=== PATIENT | male | born 1955 | race Caucasian/White ===

== ENCOUNTER 2019-12-04 22:41 | IRF | payer MEDICARE, SELFPAY ==
--- NOTE | ~2019-12-04 | US_ITS ---
EXAMINATION: US venous doppler [facility] DATE: 12/10/2019 15:42 INDICATION: Bilateral lower limb swelling TECHNIQUE: Chu scale images without and with compression and Doppler images of the bilateral lower e xtremity veins were obtained. COMPARISON: None FINDINGS: The right common femoral vein, profunda femoral vein, femoral vein, popliteal vein, peroneal trunk, p osterior tibial veins, and greater saphenous vein are patent. The left common femoral vein, profunda femoral vein, femoral vein, popliteal vein, peroneal trunk, po sterior tibial veins, and greater saphenous vein are patent. IMPRESSION: 1. Patent bilateral lower extremity veins. No evidence of deep venous thrombosis. Reviewed, dictated and finalized at location A. IMPRESSION: 1. Patent bilateral lower extremity veins. No evidence of deep venous thrombosi s.
[2019-12-04 17:40] VITALS: BP 140/74; PULSE 76; RESP 17; TEMP 36.6; O2SAT 98; BMI 46.0
--- NOTE | 2019-12-04 19:04 | PC.NURSE ---
This patient, Kalyan Zarate, was admitted to [facility] Room 218-01. Patient/family oriented to hospital policies and general routines including ID bracelet, bed and alarms, visiting hours, pain management, procedures, bathroom and other care routines, personal items, smoking policy, room service/diet, and visiting hours. Valuables list has been completed. Information on how to activate the Rapid Response Team has been discussed. Patient/Family are encouraged to report perceived risks to care and to ask questions if they do not understand what they are told or what they should do.
[2019-12-04 19:16] LABS: Glucose Point of Care 308 (65-105)
[2019-12-04] MEDS: CALCIUM CARBONATE (OSCAL) 500 MG TABLET PO (19:47)
[2019-12-04] MEDS: ENOXAPARIN 40 MG/0.4 ML SYRINGE SUB-Q (19:47)
[2019-12-04] MEDS: metFORMIN HCL 500 MG TABLET 1000 MG PO (19:47)
[2019-12-04 22:00] VITALS: BP 141/65; PULSE 96; RESP 16; TEMP 36.3; O2SAT 96
[2019-12-05 05:41] LABS: Basophils Absolute Auto 0.1 K/mm3 (0.0-0.1); Basophils Percent Auto 0.4 % (0.2-1.2); Eosinophils Absolute Auto 0.3 K/mm3 (0-0.3); Eosinophils Percent Auto 2.2 % (0-4.4); Hematocrit 35.3 % (42.0-52.0); Hemoglobin 11.4 g/dL (14.0-18.0); Immature Granulocyte Percent A 0.8 % (0-0.5); Lymphocytes Absolute Auto 1.89 K/mm3 (0.9-3.2); Lymphocytes Percent Auto 15.7 % (18.3-44.2); Mean Corpuscular HGB Conc 32.3 g/dl (32-36); Mean Corpuscular Hemoglobin 29.6 pg (26-34); Mean Corpuscular Volume 91.7 fl (80-100); Mean Platelet Volume 9.6 fl (7.4-10.4); Monocytes Absolute Auto 0.8 K/mm3 (0.1-0.6); Monocytes Percent Auto 6.5 % (2.6-8.5); Neutrophils Percent Auto 74.4 % (45.5-73.1); Platelet Count Result 279 k/mm3 (150-375); Red Blood Count 3.85 M/mm3 (4.6-6.20); Red Cell Distribution Width 12.8 % (11.5-14.5)
[2019-12-05 05:48] LABS: Hemoglobin A1C 7.6 % (<5.7)
[2019-12-05 05:52] LABS: Blood Urea Nitrogen 19 mg/dL (9-20); Calcium 9.2 mg/dL (8.4-10.2); Carbon Dioxide 31 mmol/L (22-30); Chloride 98 mmol/L (98-107); Estimated CRCL calculation 96 ml/min; Estimated Glomerular Filt Rate > 60; Glucose 277 mg/dL (75-110); Potassium 4.3 mmol/L (3.4-5.0); Sodium 134 mmol/L (137-145)
[2019-12-05 06:00] VITALS: BP 121/66; PULSE 95; RESP 18; TEMP 36.2; O2SAT 94
[2019-12-05] MEDS: ENOXAPARIN 40 MG/0.4 ML SYRINGE SUB-Q ×2 (06:06→17:58)
[2019-12-05 06:56] LABS: Glucose Point of Care 264 (65-105)
[2019-12-05] MEDS: metFORMIN HCL 500 MG TABLET 1000 MG PO ×2 (08:32→17:56)
[2019-12-05] MEDS: DOCUSATE SODIUM 100 MG CAPSULE PO (08:33)
[2019-12-05] MEDS: ATORVASTATIN 40 MG TABLET PO (08:33)
[2019-12-05] MEDS: CALCIUM CARBONATE (OSCAL) 500 MG TABLET PO ×2 (08:33→17:57)
[2019-12-05] MEDS: FLUTICASONE PROPIONATE 0.05% NA SPR 16 GM BTL (*BKC) 2 SPRAY NASAL (08:33)
[2019-12-05] MEDS: lisinopriL 20 MG TABLET 40 MG PO (08:34)
[2019-12-05] MEDS: TAMSULOSIN HCL 0.4 MG CAPSULE PO (08:34)
[2019-12-05] MEDS: INSULIN ASPART (*BKC) 100 UNITS/ML SUB-Q ×3 (08:51→17:55)
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
--- NOTE | 2019-12-05 11:00 | PCOTNOTE ---
Initiated occupational therapy evaluation, but unable to complete entirely as patient in to much pain. Therapist assisted patient back to bed, reviewed prior level of function information, and assessed upper extremity ROM and strength. RN administered medication during session. Will complete assessment this afternoon.
[2019-12-05 12:25] LABS: Glucose Point of Care 340 (65-105)
[2019-12-05 14:00] VITALS: BP 102/54; PULSE 122; RESP 20; TEMP 36.8; O2SAT 98
[2019-12-05 17:35] LABS: Glucose Point of Care 327 (65-105)
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
[2019-12-05 21:16] LABS: Glucose Point of Care 348 (65-105)
[2019-12-05 22:00] VITALS: BP 147/70; PULSE 110; RESP 18; TEMP 37.6; O2SAT 97
[2019-12-06 05:24] LABS: Hematocrit 31.1 % (42.0-52.0); Hemoglobin 10.3 g/dL (14.0-18.0); Mean Corpuscular HGB Conc 33.1 g/dl (32-36); Mean Corpuscular Hemoglobin 29.3 pg (26-34); Mean Corpuscular Volume 88.4 fl (80-100); Mean Platelet Volume 9.3 fl (7.4-10.4); Platelet Count Result 261 k/mm3 (150-375); Red Blood Count 3.52 M/mm3 (4.6-6.20); Red Cell Distribution Width 12.4 % (11.5-14.5)
[2019-12-06] MEDS: ENOXAPARIN 40 MG/0.4 ML SYRINGE SUB-Q ×2 (05:27→17:38)
[2019-12-06 05:49] LABS: Alanine Aminotransferase 17 U/L (4-50); Albumin Level 3.2 g/dL (3.5-5.1); Alkaline Phosphatase 80 U/L (38-126); Aspartate Amino Transferase 22 U/L (17-59); Bilirubin,Total 0.8 mg/dL (0.2-1.3); Blood Urea Nitrogen 21 mg/dL (9-20); Calcium 8.6 mg/dL (8.4-10.2); Carbon Dioxide 30 mmol/L (22-30); Chloride 98 mmol/L (98-107); Estimated CRCL calculation 87 ml/min; Estimated Glomerular Filt Rate > 60; Glucose 314 mg/dL (75-110); Potassium 4.7 mmol/L (3.4-5.0); Sodium 132 mmol/L (137-145)
[2019-12-06 06:00] VITALS: BP 144/64; PULSE 89; RESP 17; TEMP 36.9; O2SAT 97
[2019-12-06 06:55] LABS: Glucose Point of Care 322 (65-105)
[2019-12-06 08:00] VITALS: PULSE 89; RESP 17; O2SAT 97
[2019-12-06] MEDS: FLUTICASONE PROPIONATE 0.05% NA SPR 16 GM BTL (*BKC) 2 SPRAY NASAL (08:40)
[2019-12-06] MEDS: metFORMIN HCL 500 MG TABLET 1000 MG PO ×2 (08:41→17:37)
[2019-12-06] MEDS: TAMSULOSIN HCL 0.4 MG CAPSULE PO (08:41)
[2019-12-06] MEDS: ATORVASTATIN 40 MG TABLET PO (08:41)
[2019-12-06] MEDS: DOCUSATE SODIUM 100 MG CAPSULE PO (08:41)
[2019-12-06] MEDS: lisinopriL 20 MG TABLET 40 MG PO (08:41)
[2019-12-06] MEDS: CALCIUM CARBONATE (OSCAL) 500 MG TABLET PO ×2 (08:41→17:37)
[2019-12-06] MEDS: INSULIN ASPART (*BKC) 100 UNITS/ML SUB-Q ×2 (11:13→12:00)
[2019-12-06 12:14] LABS: Glucose Point of Care 352 (65-105)
[2019-12-06 12:17] VITALS: BMI 46.0
--- NOTE | 2019-12-06 12:42 | WPDNEURORHBP ---
Subjective Date/time seen: 12/06/19 12:42 Interval history: this 64-year-old diabetic overweight gentleman is here after having had surgery for the periprosthetic fracture of the right femur he is nonweightbearing incision is clean his diabetic status is not controlled and I have requested the diabetic nurse to look into it the hospitalist has also seen him we need to find out what his home medications were and then accordingly due the adjustments he denies any headache nausea vomiting chest pain shortness of breath fever chills sore throat is main issue is the pain during the physical therapy which is able to tolerate with some discomfort Review of Systems Review of Systems: All systems reviewed & are unremarkable except as noted in HPI and below Functional Status Ambulation Ability Ambulation Assistive Devices: Walker, Wheeled Transfers Ability Ability to Transfer In/Out of Chair: Moderate Assistance X 1 Exam Const: General: no acute distress and uncomfortable HENMT: General nose exam: Normal nares present Mouth: Yes moist mucous membranes Eyes: General: appearance normal, both eyes and all related structures Neck: Neck: supple and no JVD Resp: Effort & Inspection: normal respiratory effort Auscultation: clear to auscultation bilaterally Cardio: Rate: regular rate Rhythm: regular rhythm GI: GI Palp: Yes Soft to palpation Auscultation: normal bowel sounds Skin: General skin exam: normal color and no rashes or lesions noted Neuro: Other: patient is awake and alert well oriented time place and person has normal speech and language functions upper extremity strength is 5/5 lower extremity strength is limited because of the surgery nonweightbearing status and also peripheral neuropathy patient needs assistance all the activities of daily living Extrem: Other: the incision around the distal femur is clean no drainage is noted the immobilizer is in place patient needs assistance in all the activities of daily living Psych: Mental Status: mental status grossly normal Objective Data Vital Signs Vital Signs: Vital Signs - 24 hr 12/05/19 14:00 12/05/19 22:00 12/06/19 06:00 Temperature 36.8 C 37.6 C 36.9 C Pulse Rate 122 H 110 H 89 Respiratory Rate 20 18 17 Blood Pressure 102/54 L 147/70 H 144/64 H Pulse Oximetry 98 97 97 12/06/19 08:00 Temperature Pulse Rate 89 Respiratory Rate 17 Blood Pressure Pulse Oximetry 97 Intake/Output Intake/Output: Intake & Output 12/03/19 12/04/19 12/05/19 12/06/19 23:59 23:59 23:59 23:59 Intake Total 480 1040 500 Balance 480 1040 500 Meds/Results Medications: Active Medications Generic Name Dose Route Start Last Admin Trade Name Freq PRN Reason Stop Dose Admin Hydrocodone Bitart/Acetaminophen 1 tab 12/04/19 18:56 [place] 5-325 Mg PO Q4H PRN Pain Rated 4-6 Hydrocodone Bitart/Acetaminophen 2 tab 12/04/19 22:14 12/06/19 10:42 [place] 5-325 Mg PO 2 tab Q4H PRN Administration Pain Rated 7-10 Atorvastatin Calcium 40 mg 12/05/19 09:00 12/06/19 08:41 Lipitor PO 40 mg DAILY CARLA Administration Calcium Carbonate 500 mg 12/04/19 17:00 12/06/19 08:41 Oscal 500 Mg PO 500 mg BID CARLA Administration Dextrose 12.5 gm 12/04/19 19:08 Dextrose 50% Syringe IV PUSH PRN PRN Hypoglycemia Protocol Docusate Sodium 100 mg 12/05/19 09:00 12/06/19 08:41 Colace Capsule PO 100 mg DAILY CARLA Administration Enoxaparin Sodium 40 mg 12/06/19 18:00 Lovenox SUB-Q Q12H CARLA Ergocalciferol 50,000 unit 12/16/19 09:00 Drisdol PO [id number]@0900 CARLA Fluticasone Propionate 2 spray 12/05/19 09:00 12/06/19 08:40 Flonase 0.05% Nasal [place] NASAL 2 spray DAILY CARLA Administration Glucagon 1 mg 12/04/19 19:08 Glucagon For Inj IM PRN PRN Hypoglycemia Protocol Glucose 15 gm 12/04/19 19:08 Glutose 15 PO PRN PRN Hypoglycemia Protocol Dextrose 1,
--- NOTE | 2019-12-06 12:43 | RPD ---
INDIVIDUALIZED PLAN OF CARE FOR Kalyan Zarate Brief Synthesis of Pre-Admission Screen, Post-Admission Evaluation and Therapy Evaluations: The patient presents to rehab with Right periprosthetic distal femur fracture. Comorbidities include status post open reduction internal function, uncontrolled type 2 diabetes mellitus, hypertension, dyslipidemia, acute postoperative pain, acute blood loss anemia. The patient requires physician services for medical oversight, management of postop complications in setting of present comorbidities, and pain management. The patient requires nursing services for DVT prophylactics, infection protection, medication management and education, pressure relief, and wound care. Deficits include:ADLs, Balance, Endurance, Family Training/Education, Mobility, Pain Management, ROM, Safety, Strength, Transfers Shift Coordinator/Case Management for: Discharge Planning and Patient/Family Counseling Physical Therapy: 5 days per week for 90 minutes. Treatments may include: Therapeutic Exercise, Gait Training, Neuromuscular Re-education, Transfer Training, Community Reintegration, Bed Mobility, Patient/Family Education, Wheelchair Mobility Group Therapy/Concurrent Therapy Rationales: -Improve attention span during functional activities in a distracted environment. -Enhance problem solving and/or adequate judgment skills during functional activities in a distracted environment. -Promote increased safety awareness in a distracted environment to reduce fall risk with functional tasks, transfers, and ambulation to allow a more safe, self-sufficient return to the home environment. -Improve dynamic balance skills to promote safety and independence with functional activities in a distracted environment for maximum gain. Occupational Therapy: 5 days per week for 90 minutes. Treatments may include: Therapeutic Exercise, Therapeutic Activity, Cognitive Training, Self-Care Transfer Training, Community Reintegration, Home Management, Patient/Family Education, Wheelchair Mobility Training, Energy Conservation Training Group Therapy/Concurrent Therapy Rationales: -Allow therapist to observe and teach generalization and carry-over of skills learned in individual therapy. -Enhance problem solving and sequencing skills during therapeutic activities in a distracted environment. -Promote increased safety awareness in a realistic setting to reduce fall risk with functional tasks due to visual and verbal distractions. -Increase functional level with ADLs, ADL transfers and use of adaptive equipment through therapeutic activities with others while promoting safety to allow a more safe, self-sufficient return home. Medical Prognosis: Good Anticipated Length of Stay: 12 days Rehab Goals: Eating Goal: 06-Independent Oral Hygiene Goal: 06-Independent Toileting Hygiene Goal: 04-Supervision or Touching Assistance Shower/Bathe Self Goal: 03-Partial/Moderate Assistance Upper Body Dressing Goal: 05-Setup or Clean Up Assistance Lower Body Dressing Goal: 03-Partial/Moderate Assistance Putting On/Taking Off Footwear Goal: 04-Supervision or Touching Assistance Rolling Left and Right Goal: 06-Independent Sit to Lying Goal: 06-Independent Lying to Sitting on Side of Bed Goal: 06-Independent Sit to Stand Goal: 04-Supervision or Touching Assistance Chair/Jcv-ez-Rzyno Transfer Goal: 04-Supervision or Touching Assistance Toilet Transfer Goal: 04-Supervision or Touching Assistance Car Transfer Goal: 06-Independent Walk 10' Goal: 04-Supervision or Touching Assistance Walk 50' with Two Turns Goal: 02-Substantial/Maximal Assistance Walk 150' Goal: 09-Not Applicable Walk 10' on Uneven Surface Goal: 04-Supervision or Touching Assistance 1 Step (Curb) Goal: 01-Dependent 4 Steps Goal: 01-Dependent 12 Steps Goal Score: 09-Not Applicable Picking Up Object Goal: 06-Independent Wheel 50' with Two Turns Score: 06-Independent Wheel 150' Goal: 06-Independent Anticipated discharge yassine
[2019-12-06 14:00] VITALS: BP 141/69; PULSE 97; RESP 18; TEMP 36.1; O2SAT 94
[2019-12-06 15:00] VITALS: BMI 46.0
--- NOTE | 2019-12-06 16:34 | PM.IMPN ---
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 Status post ORIF 12/01/2019 at [facility]. Continue Lovenox 40 milligram subq q12H for DVT prophylaxis. Continue PT/OT Continue fall precautions Continue [place] for pain (2) Type 2 diabetes mellitus with peripheral neuropathy: Code(s): E11.42 - Type 2 diabetes mellitus with diabetic polyneuropathy Status: Inactive Assessment and Plan: Patient reports he has been followed by an paper folder. He tells me his home regimen consist of sliding scale NovoLog, metformin, and weekly Trulicity. However, his home medication only lists metformin. Hemoglobin A1c was 7.6% on 11/1419. Blood sugars evaluated and are elevated in the 300 range. Will need to clarify home medications with pharmacy. Initiate sliding scale insulin, Accu-Cheks, and hypoglycemic protocol. Continue metformin. Begin 20 units Lantus qHS Patient was evaluated by inclusion paraeducator and recommendations are appreciated. (3) Hypertension: Code(s): I10 - Essential (primary) hypertension Status: Acute Assessment and Plan: Blood pressures were reviewed and they are reasonably well controlled. Blood pressure evaluated today and stable at 140 4/64. Continue lisinopril and monitor blood pressure daily. (4) Hyponatremia: Code(s): E87.1 - Hypo-osmolality and hyponatremia Status: Acute Assessment and Plan: At presentation sodium was 134. Today, sodium is 132. Order random urine sodium and creatinine. Check TSH and cortisol. Monitor sodium closely. (5) Dyslipidemia: Code(s): E78.5 - Hyperlipidemia, unspecified Status: Acute Assessment and Plan: Patient has history of hyperlipidemia Continue statin. Order lipid panel (6) Benign prostatic hyperplasia: Code(s): N40.0 - Benign prostatic hyperplasia without lower urinary tract symptoms Status: Acute Assessment and Plan: No acute issues. He denies any irritative voiding symptoms. Continue tamsulosin. Subjective Date/time seen: 12/06/19 16:34 Interval history: Date of service: 12/06/2019 Mr. Zarate repeat ports he is feeling well today. He has been working well with therapy. He reports his left leg pain is being well controlled. His appetite is good. His last bowel movement was 2 days ago. He denies abdominal pain, nausea, or vomiting. He is urinating without difficulty. He denies cough, shortness of breath, or chest pain. He denies any bleeding or bruising. He denies numbness or tingling in his legs or arms. He had just been evaluated by the life educator. He has no additional concerns. Review of Systems Review of Systems: Narrative: A 12 point review of systems was reviewed with pertinent positives and negatives as per HPI. Exam Narrative: Exam Narrative: Mr. Zarate is examined alone today. He is a well-nourished 64-year-old male who is lying supine in bed. He is comfortable and is in no acute respiratory distress. HR 89, BP 144/64, RR 17, T 98.4?, 97% on room air Neuro: awake, alert and oriented x4, speech clear, no focal neuro deficits noted HEENMT: normocephalic, atraumatic, EOMI, sclerae anicteric, moist oral mucosa Neck: supple, no lymphadenopathy, large neck circumference Respiratory: clear to auscultation bilaterally, normal respiratory effort without accessory muscle use Cardio: regular rate, regular rhythm, normal S1 and S2 Abdomen: normal to inspection, obese, normoactive bowel sounds, soft, nontender to palpation, no rigidity or guarding Extremities:
[2019-12-06 17:16] LABS: Glucose Point of Care 243 (65-105)
[2019-12-06 20:42] VITALS: BP 126/65; PULSE 80; RESP 18; TEMP 37.1; O2SAT 99
[2019-12-06 21:08] LABS: Creatinine Urine 86.1 mg/dL
[2019-12-06 21:19] LABS: Sodium Urine Random 69 meq/L
[2019-12-06] MEDS: INSULIN GLARGINE (*BKC) 100 UNITS/ML 60 UNITS SUB-Q (21:29)
[2019-12-06 22:14] LABS: Glucose Point of Care 329 (65-105)
[2019-12-06 23:35] LABS: Cortisol Random 4.48 ug/dL
[2019-12-06 23:58] LABS: Cholesterol 114 mg/dL (0-200); HDL Direct 24 mg/dL; Triglycerides 129 mg/dL (<150)
[2019-12-07 00:08] LABS: LDL Cholesterol Direct 60 mg/dL
[2019-12-07 02:26] LABS: Free T4 Free Thyroxine Reflex 1.23 ng/dL (0.78-2.19)
[2019-12-07 03:31] LABS: Total Triiodothyronine (T3) 0.96 NG/ML (0.97-1.69)
[2019-12-07 05:10] LABS: Blood Urea Nitrogen 20 mg/dL (9-20); Calcium 8.6 mg/dL (8.4-10.2); Carbon Dioxide 30 mmol/L (22-30); Chloride 97 mmol/L (98-107); Estimated CRCL calculation 96 ml/min; Estimated Glomerular Filt Rate > 60; Glucose 312 mg/dL (75-110); Potassium 4.3 mmol/L (3.4-5.0); Sodium 131 mmol/L (137-145)
[2019-12-07] MEDS: ENOXAPARIN 40 MG/0.4 ML SYRINGE SUB-Q ×2 (05:14→17:21)
[2019-12-07 05:20] VITALS: BP 123/62; PULSE 87; RESP 18; TEMP 36.9; O2SAT 97
[2019-12-07 06:58] LABS: Glucose Point of Care 292 (65-105)
[2019-12-07] MEDS: INSULIN ASPART (*BKC) 100 UNITS/ML SUB-Q (08:31)
[2019-12-07] MEDS: INSULIN ASPART (*BKC) 100 UNITS/ML 30 UNITS SUB-Q ×2 (08:32→12:19)
[2019-12-07] MEDS: INSULIN GLARGINE (*BKC) 100 UNITS/ML 50 UNITS SUB-Q (08:34)
[2019-12-07] MEDS: metFORMIN HCL 500 MG TABLET 1000 MG PO ×2 (08:35→17:22)
[2019-12-07] MEDS: lisinopriL 20 MG TABLET 40 MG PO (08:36)
[2019-12-07] MEDS: TAMSULOSIN HCL 0.4 MG CAPSULE PO (08:36)
[2019-12-07] MEDS: FLUTICASONE PROPIONATE 0.05% NA SPR 16 GM BTL (*BKC) 2 SPRAY NASAL (08:36)
[2019-12-07] MEDS: CALCIUM CARBONATE (OSCAL) 500 MG TABLET PO ×2 (08:37→17:21)
[2019-12-07] MEDS: ATORVASTATIN 40 MG TABLET PO (08:37)
[2019-12-07] MEDS: DOCUSATE SODIUM 100 MG CAPSULE PO (08:38)
[2019-12-07 11:30] VITALS: PULSE 99; RESP 16; O2SAT 94
[2019-12-07 12:04] LABS: Glucose Point of Care 182 (65-105)
[2019-12-07 13:59] LABS: Sodium 132 mmol/L (137-145)
[2019-12-07 14:00] VITALS: BP 115/57; PULSE 99; RESP 16; TEMP 36; O2SAT 94
--- NOTE | 2019-12-07 14:10 | PM.IMPN ---
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 Status post ORIF 12/01/2019 at [facility]. Continue Lovenox 40 milligram subq q12H for DVT prophylaxis. Continue PT/OT Continue fall precautions Continue [place] for pain (2) Type 2 diabetes mellitus with peripheral neuropathy: Code(s): E11.42 - Type 2 diabetes mellitus with diabetic polyneuropathy Status: Inactive Assessment and Plan: Patient reports he follows with an health concierge. He tells me his home regimen consist of sliding scale NovoLog, metformin, and weekly Trulicity. However, his home medication only lists metformin. Hemoglobin A1c was 7.6% on 12/05/19. Blood sugars evaluated and are elevated in the 300 range. Patient evaluated by CDE on 12/06/19. CDE spoke to patients health concierge for recommendations which have been implemented. Initiate high-dose sliding scale insulin, Accu-Cheks ACHS, and hypoglycemic protocol. Continue metformin. Lantus 50 units qAM and and 60 units HS Novolog 30 units with meals Continue diabetic carb consistent diet Continue to monitor glycemic control . (3) Hypertension: Code(s): I10 - Essential (primary) hypertension Status: Acute Assessment and Plan: Blood pressures were reviewed and they are reasonably well controlled. Blood pressure evaluated today and stable at 123/62. Continue lisinopril and monitor blood pressure daily. (4) Hyponatremia: Code(s): E87.1 - Hypo-osmolality and hyponatremia Status: Acute Assessment and Plan: At presentation sodium was 134. Today, sodium is 131. Corrected for hyperglycemia, sodium is 133. FeNa is 0.6%, suggesting pre-renal etiology. TSH and random cortisol are wnl. I suspect that this may be related to patients hyperglycemia. Continue to monitor sodium closely. Continue glycemic control regimen (5) Dyslipidemia: Code(s): E78.5 - Hyperlipidemia, unspecified Status: Acute Assessment and Plan: Patient has history of hyperlipidemia Continue statin. Order lipid panel (6) Benign prostatic hyperplasia: Code(s): N40.0 - Benign prostatic hyperplasia without lower urinary tract symptoms Status: Acute Assessment and Plan: No acute issues. He denies any irritative voiding symptoms. Continue tamsulosin. Subjective Date/time seen: 12/07/19 14:10 Interval history: Date of service: 12/07/2019 Reports he is feeling well today. He is sitting up in a chair at the bedside. He has been working with therapy and reports he is doing well. He has no acute concerns today. His appetite is good and he tells me he is drinking plenty of water. His last bowel movement was 2 days ago. He denies any nausea, vomiting, abdominal pain, or cramping. He is urinating without difficulty. He denies dysuria, hematuria or other irritative voiding symptoms. He denies cough, congestion, shortness of breath, or chest pain. Review of Systems Review of Systems: Narrative: A 12 point review of systems was reviewed with pertinent positives and negatives as per HPI. Exam Narrative: Exam Narrative: Mr. Zarate is examined alone today. He is a well-nourished 64-year-old male who is lying supine in bed. He is comfortable and is in no acute respiratory distress. HR 87, BP 123/62, RR 18, T 98.5?, 97% room air Neuro: awake, alert and oriented x4, speech clear, no focal neuro deficits noted HEENMT: normocephalic, atraumatic, EOMI, sclerae anicteric, moist oral mucosa Neck: supple, no lymphadenopathy, large neck circumference Respiratory: clear
--- NOTE | 2019-12-07 14:35 | WPDNEURORHBP ---
Subjective Date/time seen: 12/07/19 14:35 Interval history: this 64-year-old the significantly obese diabetic male is here after having had surgery for the right distal femur fracture. His diabetic status is better some of the medications have been changed and he is feeling much better than yesterday her his pain control is better overall no chest pain no shortness of breath no fever no chills no sore throat Review of Systems Review of Systems: All systems reviewed & are unremarkable except as noted in HPI and below Functional Status Ambulation Ability Ambulation Assistive Devices: Walker, Standard Transfers Ability Ability to Transfer In/Out of Chair: Moderate Assistance X 1 Exam Const: General: comfortable and no acute distress HENMT: General nose exam: Normal nares present Mouth: Yes moist mucous membranes Eyes: General: appearance normal, both eyes and all related structures Neck: Neck: supple and no JVD Resp: Effort & Inspection: normal respiratory effort Auscultation: clear to auscultation bilaterally Cardio: Rate: regular rate Rhythm: regular rhythm GI: GI Palp: Yes Soft to palpation Auscultation: normal bowel sounds Skin: General skin exam: normal color and no rashes or lesions noted Neuro: Other: patient is awake and alert well oriented time place and person speech and language functions are normal he has decreased strength lower extremities more so than the upper extremities related primarily due to diabetic peripheral neuropathy with depressed reflexes and of course limitation of the right lower extremity due to the surgeon Extrem: Other: the right lower extremity is in the immobilizer and the incision is clean and healthy Psych: Mental Status: mental status grossly normal Objective Data Vital Signs Vital Signs: Vital Signs - 24 hr 12/06/19 20:42 12/07/19 05:20 Temperature 37.1 C 36.9 C Pulse Rate 80 87 Respiratory Rate 18 18 Blood Pressure 126/65 123/62 Pulse Oximetry 99 97 Intake/Output Intake/Output: Intake & Output 12/04/19 12/05/19 12/06/19 12/07/19 23:59 23:59 23:59 23:59 Intake Total 480 1040 980 480 Output Total 800 Balance 480 1040 180 480 Meds/Results Medications: Active Medications Generic Name Dose Route Start Last Admin Trade Name Freq PRN Reason Stop Dose Admin Hydrocodone Bitart/Acetaminophen 1 tab 12/06/19 19:00 12/07/19 12:18 [place] 10-325 Mg PO 1 tab Q4H CARLA Administration Atorvastatin Calcium 40 mg 12/05/19 09:00 12/07/19 08:37 Lipitor PO 40 mg DAILY CARLA Administration Calcium Carbonate 500 mg 12/04/19 17:00 12/07/19 08:37 Oscal 500 Mg PO 500 mg BID CARLA Administration Dextrose 12.5 gm 12/04/19 19:08 Dextrose 50% Syringe IV PUSH PRN PRN Hypoglycemia Protocol Docusate Sodium 100 mg 12/05/19 09:00 12/07/19 08:38 Colace Capsule PO 100 mg DAILY CARLA Administration Enoxaparin Sodium 40 mg 12/06/19 18:00 12/07/19 05:14 Lovenox SUB-Q 40 mg Q12H CARLA Administration Ergocalciferol 50,000 unit 12/16/19 09:00 Drisdol PO [id number] [facility] Fluticasone Propionate 2 spray 12/05/19 09:00 12/07/19 08:36 Flonase 0.05% Nasal [place] NASAL 2 spray DAILY CARLA Administration Glucagon 1 mg 12/04/19 19:08 Glucagon For Inj IM PRN PRN Hypoglycemia Protocol Glucose 15 gm 12/04/19 19:08 Glutose 15 PO PRN PRN Hypoglycemia Protocol Dextrose 1,000 mls @ 100 mls/hr 12/04/19 19:08 Dextrose 5% 1,000 Ml IVPB PRN PRN Hypoglycemia Protocol Insulin Aspart 30 units 12/07/19 08:00 12/07/19 12:19 Novolog SUB-Q 30 units TIDWM CARLA Administration Insulin Aspart 4 - 8 units 12/07/19 08:00 12/07/19 12:21 Novolog SUB-Q Not Given TIDWM [facility] Protocol Insulin Glargine 60 units 12/06/19 21:00 12/06/19 21:29 Lantus SUB-Q 60 units HS CARLA Administration Insulin Glargine 50 units 12/07/19 08:00 0
[2019-12-07 17:10] LABS: Glucose Point of Care 72 (65-105)
[2019-12-07 20:20] VITALS: BP 107/55; PULSE 90; RESP 16; TEMP 37.1; O2SAT 97
[2019-12-07 21:25] LABS: Glucose Point of Care 136 (65-105)
[2019-12-08 04:59] LABS: Blood Urea Nitrogen 22 mg/dL (9-20); Calcium 8.5 mg/dL (8.4-10.2); Carbon Dioxide 29 mmol/L (22-30); Chloride 98 mmol/L (98-107); Estimated CRCL calculation 96 ml/min; Estimated Glomerular Filt Rate > 60; Glucose 194 mg/dL (75-110); Potassium 4.6 mmol/L (3.4-5.0); Sodium 132 mmol/L (137-145)
[2019-12-08 06:10] VITALS: BP 133/59; PULSE 82; RESP 18; TEMP 37.4; O2SAT 95
[2019-12-08] MEDS: ENOXAPARIN 40 MG/0.4 ML SYRINGE SUB-Q ×2 (06:36→18:42)
[2019-12-08 07:02] LABS: Glucose Point of Care 216 (65-105)
[2019-12-08] MEDS: metFORMIN HCL 500 MG TABLET 1000 MG PO ×2 (07:29→18:41)
[2019-12-08] MEDS: INSULIN GLARGINE (*BKC) 100 UNITS/ML 50 UNITS SUB-Q (07:30)
[2019-12-08] MEDS: INSULIN ASPART (*BKC) 100 UNITS/ML 30 UNITS SUB-Q ×3 (07:32→18:43)
[2019-12-08] MEDS: INSULIN ASPART (*BKC) 100 UNITS/ML SUB-Q (07:32)
[2019-12-08 08:00] VITALS: PULSE 82; RESP 18; O2SAT 95
[2019-12-08] MEDS: FLUTICASONE PROPIONATE 0.05% NA SPR 16 GM BTL (*BKC) 2 SPRAY NASAL (08:46)
[2019-12-08] MEDS: DOCUSATE SODIUM 100 MG CAPSULE PO (08:47)
[2019-12-08] MEDS: lisinopriL 20 MG TABLET 40 MG PO (08:47)
[2019-12-08] MEDS: TAMSULOSIN HCL 0.4 MG CAPSULE PO (08:47)
[2019-12-08] MEDS: CALCIUM CARBONATE (OSCAL) 500 MG TABLET PO ×2 (08:47→18:41)
[2019-12-08] MEDS: ATORVASTATIN 40 MG TABLET PO (08:47)
[2019-12-08 12:19] LABS: Glucose Point of Care 125 (65-105)
[2019-12-08 14:00] VITALS: BP 130/75; PULSE 101; RESP 20; TEMP 36.3; O2SAT 97
--- NOTE | 2019-12-08 15:07 | P.PNIM_ITS ---
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 Status post ORIF 12/01/2019 at [facility]. * Continue Lovenox 40 milligram subq q12H for DVT prophylaxis. * Continue PT/OT * Continue fall precautions * Continue [place] for pain (2) Type 2 diabetes mellitus with peripheral neuropathy: Code(s): E11.42 - Type 2 diabetes mellitus with diabetic polyneuropathy Status: Inactive Assessment and Plan: Patient reports he follows with an homeland security program specialist. He tells me his home regimen consist of sliding scale NovoLog, metformin, and weekly Trulicity. However, his home medication only lists metformin. Hemoglobin A1c was 7.6% on 12/05/19. Patient evaluated by CDE on 12/06/19. CDE spoke to patients homeland security program specialist for recommendations which have been implemented. Blood sugars have been improved today 125-216. * Continue high-dose sliding scale insulin, Accu-Cheks ACHS, and hypoglycemic protocol. * Continue metformin. * Lantus 50 units qAM and and 60 units HS * Novolog 30 units with meals * Continue diabetic carb consistent diet * Continue to monitor glycemic control . (3) Constipation due to opioid therapy: Code(s): K59.03 - Drug induced constipation; T40.2X5A - Adverse effect of other opioids, initial encounter Status: Acute Assessment and Plan: Patient has not had a BM in 4 days. He endorses abdominal discomfort and constipation. He has been taking [place] for pain related to fracture. He drank prune juice today. * Add senna * Continue colace * Begin miralax daily scheduled * If patient is unable to have a BM with aforementioned therapies, will attempt soap zan enema (4) Hypertension: Code(s): I10 - Essential (primary) hypertension Status: Acute Assessment and Plan: Blood pressures were reviewed and they are reasonably well controlled. Blood pressure evaluated today and stable at 133/59. * Continue lisinopril and monitor blood pressure daily. (5) Hyponatremia: Code(s): E87.1 - Hypo-osmolality and hyponatremia Status: Acute Assessment and Plan: At presentation sodium was 134. FeNa is 0.6%, suggesting pre-renal etiology. TSH and random cortisol are wnl. I suspect that this may be related to patients hyperglycemia. Additionally, he is on lisinopril and norco which may contribute. Sodium today is 132, correlating to 134 corrected for hyperglycemia. * Continue to monitor sodium closely. * Continue glycemic control regimen (6) Dyslipidemia: Code(s): E78.5 - Hyperlipidemia, unspecified Status: Acute Assessment and Plan: Patient has history of hyperlipidemia. Lipid panel performed and wnl besides low HDL. * Continue atorvastatin. (7) Benign prostatic hyperplasia: Code(s): N40.0 - Benign prostatic hyperplasia without lower urinary tract symptoms Status: Acute Assessment and Plan: No acute issues. He denies any irritative voiding symptoms. * Continue tamsulosin. Subjective Date/time seen: 12/08/19 15:07 Interval history: Date of service: 12/08/2019 Mr. Zarate is complaing of abdominal pain related to constipation today. He has no
--- NOTE | 2019-12-08 15:07 | PM.IMPN ---
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 Status post ORIF 12/01/2019 at [facility]. Continue Lovenox 40 milligram subq q12H for DVT prophylaxis. Continue PT/OT Continue fall precautions Continue [place] for pain (2) Type 2 diabetes mellitus with peripheral neuropathy: Code(s): E11.42 - Type 2 diabetes mellitus with diabetic polyneuropathy Status: Inactive Assessment and Plan: Patient reports he follows with an state historical society director. He tells me his home regimen consist of sliding scale NovoLog, metformin, and weekly Trulicity. However, his home medication only lists metformin. Hemoglobin A1c was 7.6% on 12/05/19. Patient evaluated by CDE on 12/06/19. CDE spoke to patients state historical society director for recommendations which have been implemented. Blood sugars have been improved today 125-216. Continue high-dose sliding scale insulin, Accu-Cheks ACHS, and hypoglycemic protocol. Continue metformin. Lantus 50 units qAM and and 60 units HS Novolog 30 units with meals Continue diabetic carb consistent diet Continue to monitor glycemic control . (3) Constipation due to opioid therapy: Code(s): K59.03 - Drug induced constipation; T40.2X5A - Adverse effect of other opioids, initial encounter Status: Acute Assessment and Plan: Patient has not had a BM in 4 days. He endorses abdominal discomfort and constipation. He has been taking [place] for pain related to fracture. He drank prune juice today. Add senna Continue colace Begin miralax daily scheduled If patient is unable to have a BM with aforementioned therapies, will attempt soap zan enema (4) Hypertension: Code(s): I10 - Essential (primary) hypertension Status: Acute Assessment and Plan: Blood pressures were reviewed and they are reasonably well controlled. Blood pressure evaluated today and stable at 133/59. Continue lisinopril and monitor blood pressure daily. (5) Hyponatremia: Code(s): E87.1 - Hypo-osmolality and hyponatremia Status: Acute Assessment and Plan: At presentation sodium was 134. FeNa is 0.6%, suggesting pre-renal etiology. TSH and random cortisol are wnl. I suspect that this may be related to patients hyperglycemia. Additionally, he is on lisinopril and norco which may contribute. Sodium today is 132, correlating to 134 corrected for hyperglycemia. Continue to monitor sodium closely. Continue glycemic control regimen (6) Dyslipidemia: Code(s): E78.5 - Hyperlipidemia, unspecified Status: Acute Assessment and Plan: Patient has history of hyperlipidemia. Lipid panel performed and wnl besides low HDL. Continue atorvastatin. (7) Benign prostatic hyperplasia: Code(s): N40.0 - Benign prostatic hyperplasia without lower urinary tract symptoms Status: Acute Assessment and Plan: No acute issues. He denies any irritative voiding symptoms. Continue tamsulosin. Subjective Date/time seen: 12/08/19 15:07 Interval history: Date of service: 12/08/2019 Mr. Zarate is complaing of abdominal pain related to constipation today. He has not had a bowel movement in several days and feels very uncomfortable. He was not able to eat much of his meal today due to his discomfort. He has been passing gas and belching. His left leg pain is not as significant today. He denies urinary symptoms. He denies SOB, chest pain, or cough. He denies fever or chills. He slept well last night. Review of Systems Review of Systems: Narrative: A 12 point review of systems was reviewed with
[2019-12-08 16:17] LABS: Blood Urea Nitrogen 22 mg/dL (9-20); Calcium 9.3 mg/dL (8.4-10.2); Carbon Dioxide 30 mmol/L (22-30); Chloride 99 mmol/L (98-107); Estimated CRCL calculation 96 ml/min; Estimated Glomerular Filt Rate > 60; Glucose 100 mg/dL (75-110); Potassium 4.7 mmol/L (3.4-5.0); Sodium 136 mmol/L (137-145)
--- NOTE | 2019-12-08 16:30 | WPDNEURORHBP ---
Subjective Date/time seen: 12/08/19 16:30 Interval history: this 64-year-old gentleman is here after having had surgery for the right distal femur fracture. He is a diabetic and seems like the diabetic control is better in the previous couple of days he denies any headache nausea vomiting chest pain shortness of breath fever chills sore throat Review of Systems Review of Systems: All systems reviewed & are unremarkable except as noted in HPI and below Functional Status Ambulation Ability Ambulation Assistive Devices: Walker, Standard Transfers Ability Ability to Transfer In/Out of Chair: Moderate Assistance X 1 Exam Const: General: comfortable and no acute distress HENMT: General nose exam: Normal nares present Mouth: Yes moist mucous membranes Eyes: General: appearance normal, both eyes and all related structures Neck: Neck: supple and no JVD Resp: Effort & Inspection: normal respiratory effort Auscultation: clear to auscultation bilaterally Cardio: Rate: regular rate Rhythm: regular rhythm GI: GI Palp: Yes Soft to palpation Auscultation: normal bowel sounds Skin: General skin exam: normal color and no rashes or lesions noted Neuro: Other: patient is awake and alert will oriented in time place and person has normal cranial examination the weakness is related to the not only the surgery but also evidence of the peripheral neuropathy which is all getting better Extrem: Other: the surgical incision around the distal femur is clean and the patient's right lower extremity is in immobilizer Psych: Mental Status: mental status grossly normal Objective Data Vital Signs Vital Signs: Vital Signs - 24 hr 12/07/19 20:20 12/08/19 06:10 12/08/19 08:00 Temperature 37.1 C 37.4 C Pulse Rate 90 82 82 Respiratory Rate 16 18 18 Blood Pressure 107/55 L 133/59 L Pulse Oximetry 97 95 95 12/08/19 14:00 Temperature 36.3 C L Pulse Rate 101 H Respiratory Rate 20 Blood Pressure 130/75 Pulse Oximetry 97 Intake/Output Intake/Output: Intake & Output 12/05/19 12/06/19 12/07/19 12/08/19 23:59 23:59 23:59 23:59 Intake Total 3056 433 0354 240 Output Total 800 Balance 9602 185 8563 240 Meds/Results Medications: Active Medications Generic Name Dose Route Start Last Admin Trade Name Freq PRN Reason Stop Dose Admin Hydrocodone Bitart/Acetaminophen 1 tab 12/06/19 19:00 12/08/19 12:07 [place] 10-325 Mg PO 1 tab Q4H CARLA Administration Atorvastatin Calcium 40 mg 12/05/19 09:00 12/08/19 08:47 Lipitor PO 40 mg DAILY CARLA Administration Calcium Carbonate 500 mg 12/04/19 17:00 12/08/19 08:47 Oscal 500 Mg PO 500 mg BID CARLA Administration Dextrose 12.5 gm 12/04/19 19:08 Dextrose 50% Syringe IV PUSH PRN PRN Hypoglycemia Protocol Docusate Sodium 100 mg 12/05/19 09:00 12/08/19 08:47 Colace Capsule PO 100 mg DAILY CARLA Administration Enoxaparin Sodium 40 mg 12/06/19 18:00 12/08/19 06:36 Lovenox SUB-Q 40 mg Q12H CARLA Administration Ergocalciferol 50,000 unit 12/16/19 09:00 Drisdol PO [id number] [facility] Fluticasone Propionate 2 spray 12/05/19 09:00 12/08/19 08:46 Flonase 0.05% Nasal [place] NASAL 2 spray DAILY [facility] Administration Glucagon 1 mg 12/04/19 19:08 Glucagon For Inj IM PRN PRN Hypoglycemia Protocol Glucose 15 gm 12/04/19 19:08 Glutose 15 PO PRN PRN Hypoglycemia Protocol Dextrose 1,000 mls @ 100 mls/hr 12/04/19 19:08 Dextrose 5% 1,000 Ml IVPB PRN PRN Hypoglycemia Protocol Insulin Aspart 30 units 12/07/19 08:00 12/08/19 12:07 Novolog SUB-Q 30 units TIDWM [facility] Administration Insulin Aspart 4 - 8 units 12/07/19 08:00 12/08/19 12:08 Novolog SUB-Q Not Given TIDWM [facility] Protocol Insulin Glargine 60 units 12/06/19 21:00 12/07/19 20:59 Lantus SUB-Q Not Given HS [facility] Insulin Glargine 50 units 12/07/19 08:00 12/08/19 07:
[2019-12-08 17:46] LABS: Glucose Point of Care 146 (65-105)
[2019-12-08 20:40] LABS: Glucose Point of Care 145 (65-105)
[2019-12-08] MEDS: SENNA/DOCUSATE SODIUM TABLET 1 TAB PO (20:52)
[2019-12-08] MEDS: INSULIN GLARGINE (*BKC) 100 UNITS/ML 60 UNITS SUB-Q (20:52)
[2019-12-08 22:00] VITALS: BP 119/58; PULSE 100; RESP 18; TEMP 36.4; O2SAT 97
[2019-12-09 06:00] VITALS: BP 105/55; PULSE 75; RESP 18; TEMP 36.1; O2SAT 96
[2019-12-09] MEDS: ENOXAPARIN 40 MG/0.4 ML SYRINGE SUB-Q ×2 (06:53→18:19)
[2019-12-09 07:00] LABS: Glucose Point of Care 82 (65-105)
[2019-12-09 08:00] VITALS: PULSE 75; RESP 18; O2SAT 96
[2019-12-09] MEDS: lisinopriL 20 MG TABLET 40 MG PO (08:36)
[2019-12-09] MEDS: TAMSULOSIN HCL 0.4 MG CAPSULE PO (08:36)
[2019-12-09] MEDS: ATORVASTATIN 40 MG TABLET PO (08:36)
[2019-12-09] MEDS: CALCIUM CARBONATE (OSCAL) 500 MG TABLET PO ×2 (08:36→18:19)
[2019-12-09] MEDS: metFORMIN HCL 500 MG TABLET 1000 MG PO ×2 (08:37→18:19)
[2019-12-09] MEDS: FLUTICASONE PROPIONATE 0.05% NA SPR 16 GM BTL (*BKC) 2 SPRAY NASAL (08:37)
[2019-12-09] MEDS: INSULIN GLARGINE (*BKC) 100 UNITS/ML 50 UNITS SUB-Q (08:38)
[2019-12-09] MEDS: LACTULOSE 20 GM/30 ML UDC 30 GM PO (08:45)
--- NOTE | 2019-12-09 10:03 | WPDNEURORHBP ---
Subjective Date/time seen: S/P right distal femur fracture with DM doing well12/09/19 10:03 Review of Systems Review of Systems: All systems reviewed & are unremarkable except as noted in HPI and below Functional Status Ambulation Ability Ambulation Assistive Devices: Walker, Standard Transfers Ability Ability to Transfer In/Out of Chair: Moderate Assistance X 1 Exam Const: General: cooperative, comfortable, no acute distress and well developed Nutritional Appearance: overweight Orientation/consciousness: patient oriented x3 Limitations: no limitations HENMT: Head: normal to inspection General nose exam: No nasal discharge present Neck: Neck: full ROM Resp: Effort & Inspection: normal respiratory effort and able to speak in complete sentences Auscultation: clear to auscultation bilaterally Cardio: Rate: regular rate Rhythm: regular rhythm GI: Auscultation: normal bowel sounds Skin: General skin exam: induration Rashes: no rashes Neuro: General: patient oriented x3 and moves all extremities Cranial nerves: Yes CN's II-XII intact bilaterally Cognition (Neuro): normal cognition Speech: normal speech Gait exam (Neuro): Unable to assess gait Motor exam (neuro): Pronator motor function not present Sensory Exam: Sensory deficit (Neuro) (distally) Extrem: Right lower extremity: lower leg (right lower extremity immobilized) Psych: Mental Status: mental status grossly normal Speech and movement: Normal speech and movement present Affect: normal affect Attitude: cooperative Thought content: Yes Normal thought content present Insight: Good insight present (Psych) Judgement: Good judgement present (Psych) Objective Data Vital Signs Vital Signs: Vital Signs - 24 hr 12/08/19 14:00 12/08/19 22:00 12/09/19 06:00 Temperature 36.3 C L 36.4 C L 36.1 C L Pulse Rate 101 H 100 75 Respiratory Rate 20 18 18 Blood Pressure 130/75 119/58 L 105/55 L Pulse Oximetry 97 97 96 Intake/Output Intake/Output: Intake & Output 12/06/19 12/07/19 12/08/19 12/09/19 23:59 23:59 23:59 23:59 Intake Total 980 1200 480 240 Output Total 800 Balance 180 1200 480 240 Meds/Results Medications: Active Medications Generic Name Dose Route Start Last Admin Trade Name Freq PRN Reason Stop Dose Admin Hydrocodone Bitart/Acetaminophen 1 tab 12/06/19 19:00 12/09/19 06:53 [place] 10-325 Mg PO 1 tab Q4H CARLA Administration Atorvastatin Calcium 40 mg 12/05/19 09:00 12/09/19 08:36 Lipitor PO 40 mg DAILY CARLA Administration Calcium Carbonate 500 mg 12/04/19 17:00 12/09/19 08:36 Oscal 500 Mg PO 500 mg BID CARLA Administration Dextrose 12.5 gm 12/04/19 19:08 Dextrose 50% Syringe IV PUSH PRN PRN Hypoglycemia Protocol Docusate Sodium 100 mg 12/05/19 09:00 12/08/19 08:47 Colace Capsule PO 100 mg DAILY CARLA Administration Enoxaparin Sodium 40 mg 12/06/19 18:00 12/09/19 06:53 Lovenox SUB-Q 40 mg Q12H CARLA Administration Ergocalciferol 50,000 unit 12/16/19 09:00 Drisdol PO [id number] [facility] Fluticasone Propionate 2 spray 12/05/19 09:00 12/09/19 08:37 Flonase 0.05% Nasal [place] NASAL 2 spray DAILY [facility] Administration Glucagon 1 mg 12/04/19 19:08 Glucagon For Inj IM PRN PRN Hypoglycemia Protocol Glucose 15 gm 12/04/19 19:08 Glutose 15 PO PRN PRN Hypoglycemia Protocol Dextrose 1,000 mls @ 100 mls/hr 12/04/19 19:08 Dextrose 5% 1,000 Ml IVPB PRN PRN Hypoglycemia Protocol Insulin Aspart 30 units 12/07/19 08:00 12/09/19 08:44 Novolog SUB-Q Not Given TIDWM [facility] Insulin Aspart 4 - 8 units 12/07/19 08:00 12/09/19 08:44 Novolog SUB-Q Not Given TIDWM [facility] Protocol Insulin Glargine 60 units 12/06/19 21:00 12/08/19 20:52 Lantus SUB-Q 60 units HS CARLA Administration Insulin Glargine 50 units 12/07/19 08:00 12/09/19 08:38 Lantus SUB-Q 50 units 08
--- NOTE | 2019-12-09 10:25 | PM.IMPN ---
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 Status post ORIF 12/01/2019 at [facility]. Continue Lovenox 40 milligram subq q12H for DVT prophylaxis. Continue PT/OT Continue fall precautions Continue [place] for pain (2) Type 2 diabetes mellitus with peripheral neuropathy: Code(s): E11.42 - Type 2 diabetes mellitus with diabetic polyneuropathy Status: Inactive Assessment and Plan: Patient reports he follows with an hot strip mill supervisor. He tells me his home regimen consist of sliding scale NovoLog, metformin, and weekly Trulicity. However, his home medication only lists metformin. Hemoglobin A1c was 7.6% on 12/05/19. Patient evaluated by CDE on 12/06/19. CDE spoke to patient's hot strip mill supervisor for recommendations which have been implemented. Blood sugars initially ranging 250-350 have shown improvement and ranged 82-146 the past 24h. Continue high-dose sliding scale insulin, Accu-Cheks ACHS, and hypoglycemic protocol. Continue metformin. Lantus 50 units qAM and and 60 units HS Novolog 30 units with meals Continue diabetic carb consistent diet Continue to monitor glycemic control . (3) Constipation due to opioid therapy: Code(s): K59.03 - Drug induced constipation; T40.2X5A - Adverse effect of other opioids, initial encounter Status: Acute Assessment and Plan: He has been taking [place] for pain related to fracture which puts him at risk for opioid induced constipation. He had a regular bowel movement yesterday after not having a BM for 4 days prior. Continue colace and miralax daily scheduled Transition to Senna prn (4) Hypertension: Code(s): I10 - Essential (primary) hypertension Status: Acute Assessment and Plan: Blood pressures were reviewed and they are reasonably well controlled with some elevated readings, likely due to pain. Today, blood pressure is soft at 105/55. Continue lisinopril Monitor blood pressure daily. Watch closely for hypotension given patients fall risk. (5) Hyponatremia: Code(s): E87.1 - Hypo-osmolality and hyponatremia Status: Acute Assessment and Plan: At presentation sodium was 134, then decreased to 131. FeNa is 0.6%. TSH and random cortisol are wnl. I suspect that this may be related to patients hyperglycemia. Additionally, he is on lisinopril and norco which may contribute. Sodium today is 133. There may be a chronic component to his hyponatremia but no prior labs are available for review. Continue to monitor sodium closely. Continue glycemic control regimen (6) Dyslipidemia: Code(s): E78.5 - Hyperlipidemia, unspecified Status: Acute Assessment and Plan: Patient has history of hyperlipidemia. Lipid panel within normal limits with the exception of low HDL. Continue atorvastatin. Patient will benefit from lifestyle modifications including beginning an exercise regimen once cleared from orthopedic standpoint. (7) Benign prostatic hyperplasia: Code(s): N40.0 - Benign prostatic hyperplasia without lower urinary tract symptoms Status: Acute Assessment and Plan: No acute issues. He denies any irritative voiding symptoms. Continue tamsulosin. Subjective Date/time seen: 12/09/19 10:25 Interval history: Date of service: 12/09/2019 Mr. Zarate reports he is feeling well today. He had a bowel movement yesterday evening and notes significant relief. He denies abdominal pain, nausea, or vomiting. His appetite has been good. His right leg pain is well-controlled. He has some discomfort when
[2019-12-09 10:38] LABS: Sodium 133 mmol/L (137-145)
[2019-12-09 12:07] LABS: Glucose Point of Care 193 (65-105)
[2019-12-09] MEDS: INSULIN ASPART (*BKC) 100 UNITS/ML 30 UNITS SUB-Q (12:48)
--- NOTE | 2019-12-09 12:55 | PC.NURSE ---
PATIENT DID NOT WANT THE WHOLE 30 UNITS OF NOVOLOG THAT WAS SCHEDULED. WANTED ONLY 15 UNITS.
[2019-12-09 14:00] VITALS: BP 99/55; PULSE 117; RESP 20; TEMP 36.7; O2SAT 97
--- NOTE | 2019-12-09 15:12 | PCPTNOTE ---
Kalyan Zarate was evaluated for a bariatric walker on 12/09/2019 by this physical therapist. The bariatric walker will resolve patient's mobility limitations and will be used for ADL's within the home. The patient can safely use the bariatric walker. ?The bariatric walker will resolve the patient?s mobility deficits, including transfers and short distance gait activities. Ju Chanel PT
--- NOTE | 2019-12-09 15:14 | PCPTNOTE ---
Ju Chanel, PT completed an inpatient rehab wheelchair evaluation on Kalyan Zarate on 12/09/2019. The patient is unable to safely and independently ambulate household distances due to their current impairments. Their diagnosis is right distal femur fracture and their impairments include decreased strength, decreased endurance, decreased range of motion, decreased balance, lower extremity weakness, and ataxia. Mr. Zarate's weight bearing status is weight-bearing on the right lower leg. The patient demonstrates significant functional mobility limitations that impair their ability to participate in mobility-related activities of daily living (MRADLs), including toileting, feeding, dressing, grooming, and bathing in the customary locations in the home. These limitations cannot be sufficiently resolved by the use of an appropriately fitted cane or walker. It is recommended that the patient utilize a wheelchair for functional mobility within the home in order to facilitate optimal safety, independence and participation in all MRADL's and adequately access their home environment on a regular basis. The patient's home provides adequate access between rooms, maneuvering space, and surfaces to accommodate the recommended wheelchair. The use of a wheelchair for functional mobility is strongly recommended and the patient is receptive to using the wheelchair. The use of this wheelchair will significantly improve the patient's ability to participate in MRADLS and the patient will use it on a regular basis in the home. This will facilitate optimal safety, independence, and participation. The patient has demonstrated sufficient physical and mental capabilities needed to safely propel a manual wheelchair that is provided in the home during a typical day. Recommended Wheelchair Frame: standard with 20 anatomical hip width Recommended Wheelchair Size: 22 W x 20 deep Recommended Wheelchair Cushion: standard Wheelchair Leg Recommendations: detachable elevating leg rests - A heavy duty wheelchair is recommended because the patient weighs more than 250 pounds. - Elevating legrests are recommended because the patient has a musculoskeletal condition or the presence of a cast or brace which prevents 90 degree flexion at the knee. Also, elevating legrests are recommended because the patient has significant edema of the lower extremities that requires an elevating legrest. - Anti-tippers are recommended due to patient demonstrating increased risk for falls. They would benefit from anti-tippers with added safety and stabilization. __Ju Chanel PT ___5/18/20 Evaluating Therapist Date I agree with and certify that the above recommendation is medically necessary. Referring Physician Date I agree with and certify that the above recommendation is medically necessary. Referring Physician Date
[2019-12-09 17:09] LABS: Glucose Point of Care 84 (65-105)
[2019-12-09 18:28] LABS: Glucose Point of Care 127 (65-105)
--- NOTE | 2019-12-09 18:37 | PC.NURSE ---
REFUSED SCHEDULED INSULIN AT SUPPER. BLOOD SUGAR TO LOW.
[2019-12-09 21:23] LABS: Glucose Point of Care 120 (65-105)
[2019-12-09 21:39] VITALS: BP 117/62; PULSE 94; RESP 20; TEMP 36.9; O2SAT 99
[2019-12-10 05:02] LABS: Sodium 135 mmol/L (137-145)
[2019-12-10 06:00] VITALS: BP 103/58; PULSE 76; RESP 20; TEMP 36.5; O2SAT 96
[2019-12-10] MEDS: ENOXAPARIN 40 MG/0.4 ML SYRINGE SUB-Q ×2 (06:48→18:10)
[2019-12-10 06:55] LABS: Glucose Point of Care 72 (65-105)
[2019-12-10] MEDS: ATORVASTATIN 40 MG TABLET PO (09:59)
[2019-12-10] MEDS: CALCIUM CARBONATE (OSCAL) 500 MG TABLET PO ×2 (09:59→18:08)
[2019-12-10] MEDS: FLUTICASONE PROPIONATE 0.05% NA SPR 16 GM BTL (*BKC) 2 SPRAY NASAL (09:59)
[2019-12-10] MEDS: polyethylene glycoL 3350 17 GM POWD.PACK PO (10:00)
[2019-12-10] MEDS: lisinopriL 20 MG TABLET 40 MG PO (10:00)
[2019-12-10] MEDS: TAMSULOSIN HCL 0.4 MG CAPSULE PO (10:00)
[2019-12-10 12:27] LABS: Glucose Point of Care 414 (65-105)
--- NOTE | 2019-12-10 12:29 | WPDNEURORHBP ---
Subjective Date/time seen: 12/10/19 12:29 Interval history: the patient is a 64-year-old diabetic male here on rehab because of periprosthetic distal femur fracture which had the surgery done and also is a Rigoberto Koul diabetic and fluctuating blood sugars this morning he was relatively low and I held his morning dose of insulin [place] [id number] and have requested the attending nurse to be in touch with the hospitalist to manage it better He denies any headache nausea vomiting chest pain or shortness of breath Review of Systems Review of Systems: All systems reviewed & are unremarkable except as noted in HPI and below Functional Status Ambulation Ability Ambulation Assistive Devices: Walker, Standard Transfers Ability Ability to Transfer In/Out of Chair: Moderate Assistance X 1 Exam Const: General: comfortable and no acute distress HENMT: General nose exam: Normal nares present Mouth: Yes moist mucous membranes Eyes: General: appearance normal, both eyes and all related structures Neck: Neck: supple and no JVD Resp: Effort & Inspection: normal respiratory effort Auscultation: clear to auscultation bilaterally Cardio: Rate: regular rate Rhythm: regular rhythm GI: GI Palp: Yes Soft to palpation Auscultation: normal bowel sounds Skin: General skin exam: normal color and no rashes or lesions noted Neuro: Other: patient is awake and alert and well oriented the pain control is fair his speech language functions are normal is generally weak nonweightbearing in the right lower extremity evidence of peripheral neuropathy along with limitation of the movement of the right lower extremity due to surgery and the immobilizer is obvious Extrem: Other: the right lower extremities in immobilizer the incision is clean and healthy Psych: Mental Status: mental status grossly normal Objective Data Vital Signs Vital Signs: Vital Signs - 24 hr 12/09/19 14:00 12/09/19 21:39 12/10/19 06:00 Temperature 36.7 C 36.9 C 36.5 C Pulse Rate 117 H 94 76 Respiratory Rate 20 20 20 Blood Pressure 99/55 L 117/62 103/58 L Pulse Oximetry 97 99 96 Intake/Output Intake/Output: Intake & Output 12/07/19 12/08/19 12/09/19 12/10/19 23:59 23:59 23:59 23:59 Intake Total 1200 480 720 240 Balance 1200 480 720 240 Meds/Results Medications: Active Medications Generic Name Dose Route Start Last Admin Trade Name Freq PRN Reason Stop Dose Admin Hydrocodone Bitart/Acetaminophen 1 tab 12/06/19 19:00 12/10/19 06:47 [place] 10-325 Mg PO 1 tab Q4H CARLA Administration Atorvastatin Calcium 40 mg 12/05/19 09:00 12/10/19 09:59 Lipitor PO 40 mg DAILY CARLA Administration Calcium Carbonate 500 mg 12/04/19 17:00 12/10/19 09:59 Oscal 500 Mg PO 500 mg BID CARLA Administration Dextrose 12.5 gm 12/04/19 19:08 Dextrose 50% Syringe IV PUSH PRN PRN Hypoglycemia Protocol Docusate Sodium 100 mg 12/05/19 09:00 12/08/19 08:47 Colace Capsule PO 100 mg DAILY CARLA Administration Enoxaparin Sodium 40 mg 12/06/19 18:00 12/10/19 06:48 Lovenox SUB-Q 40 mg Q12H CARLA Administration Ergocalciferol 50,000 unit 12/16/19 09:00 Drisdol PO [id number] [facility] Fluticasone Propionate 2 spray 12/05/19 09:00 12/10/19 09:59 Flonase 0.05% Nasal [place] NASAL 2 spray DAILY [facility] Administration Glucagon 1 mg 12/04/19 19:08 Glucagon For Inj IM PRN PRN Hypoglycemia Protocol Glucose 15 gm 12/04/19 19:08 Glutose 15 PO PRN PRN Hypoglycemia Protocol Dextrose 1,000 mls @ 100 mls/hr 12/04/19 19:08 Dextrose 5% 1,000 Ml IVPB PRN PRN Hypoglycemia Protocol Insulin Aspart 30 units 12/07/19 08:00 12/10/19 08:37 Novolog SUB-Q Not Given TIDWM [facility] Insulin Aspart 4 - 8 units 12/07/19 08:00 12/10/19 08:38 Novolog SUB-Q Not Given TIDWM [facility] Protocol Insulin Glargine 60 units
--- NOTE | 2019-12-10 12:35 | PC.NURSE ---
Blood sugars where low this morning at 72 and last night was 120 and patient refused his 60 of Lantus and this morning Dr. Regalado had me hold all is medications (Lantus 50, Novolog 30, and metformin). Noon blood sugar elevated at [address] Regalado who referred me to hospitalist which was Supriya. Supriya instructed to give 30 of Lantus now and 30 of Novolog.
[2019-12-10] MEDS: INSULIN GLARGINE (*BKC) 100 UNITS/ML 30 UNITS SUB-Q (12:43)
[2019-12-10] MEDS: INSULIN ASPART (*BKC) 100 UNITS/ML 30 UNITS SUB-Q (12:44)
[2019-12-10 14:00] VITALS: BP 107/61; PULSE 91; RESP 22; TEMP 36.9; O2SAT 94
[2019-12-10 14:01] LABS: Glucose Point of Care 136 (65-105)
--- NOTE | 2019-12-10 14:04 | PM.IMPN ---
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 Status post ORIF 12/01/2019 at [facility]. Continue Lovenox 40 milligram subq q12H for DVT prophylaxis. Continue PT/OT Continue fall precautions Continue [place] for pain (2) Swelling of right lower extremity: Code(s): M79.89 - Other specified soft tissue disorders Status: Acute Assessment and Plan: The patient has 1+ pitting edema of the right lower extremity. Will order venous doppler (3) Type 2 diabetes mellitus with peripheral neuropathy: Code(s): E11.42 - Type 2 diabetes mellitus with diabetic polyneuropathy Status: Inactive Assessment and Plan: Patient reports he follows with an drop forge operator. He tells me his home regimen consist of sliding scale NovoLog, metformin, and weekly Trulicity. However, his home medication only lists metformin. Hemoglobin A1c was 7.6% on 12/05/19. Patient evaluated by CDE on 12/06/19. CDE spoke to patient's drop forge operator for recommendations which have been implemented. Blood sugars initially ranged from 250-350. Blood sugars following endocrinology recommendations were well-controlled. His lantus was held last night and earlier this morning due to concern for low blood sugars. Blood sugar was 414 at lunch. He was given his meal dose of novolog and 30 units lantus. Repeat blood sugar was 136. Continue high-dose sliding scale insulin, Accu-Cheks ACHS, and hypoglycemic protocol. Continue metformin. Will decrease Lantus to 40 units qAM and and 50 units HS and monitor closely Novolog 30 units with meals Continue diabetic carb consistent diet Continue to monitor glycemic control . (4) Constipation due to opioid therapy: Code(s): K59.03 - Drug induced constipation; T40.2X5A - Adverse effect of other opioids, initial encounter Status: Resolved Assessment and Plan: He has been taking [place] for pain related to fracture which puts him at risk for opioid induced constipation. He reports that he had several bowel movements yesterday. He feels much better and no longer feels constipated. Continue colace and miralax daily scheduled Transition to Senna prn (5) Hypertension: Code(s): I10 - Essential (primary) hypertension Status: Acute Assessment and Plan: Blood pressures were reviewed and have been low/normal. Continue lisinopril, will decrease to 30mg due to soft pressures and monitor closely Watch closely for hypotension given patients fall risk. (6) Hyponatremia: Code(s): E87.1 - Hypo-osmolality and hyponatremia Status: Acute Assessment and Plan: At presentation sodium was 134, then decreased to 131. FeNa is 0.6%. TSH and random cortisol are WNL. The patient's hyponatremia may be due to the patient's hyperglycemia as well as post-op pain. He may have a chronic component as well but we have no prior labs available for review. Sodium was 135 today. Continue to monitor Continue glycemic control regimen (7) Dyslipidemia: Code(s): E78.5 - Hyperlipidemia, unspecified Status: Acute Assessment and Plan: Patient has history of hyperlipidemia. Lipid panel was repeated and is WNL with the exception of low HDL. Continue atorvastatin. Patient will benefit from lifestyle modifications including beginning an exercise regimen once cleared from orthopedic standpoint. (8) Benign prostatic hyperplasia: Code(s): N40.0 - Benign prostatic hyperplasia without lower urinary tract symptoms Status: Acute Assessment and Plan: Chronic. He ayala
[2019-12-10 17:18] LABS: Glucose Point of Care 65 (65-105)
--- NOTE | 2019-12-10 17:57 | PC.NURSE ---
Dinner blood sugar 65, had already completed meal. spoke with Supriya, hold Novolog tonight, but ok for metformin, and change Novolog with meals to 10units starting tomorrow, and also change Lantus to 30 in AM and 40 at HS. Will continue to monitor.
[2019-12-10] MEDS: metFORMIN HCL 500 MG TABLET 1000 MG PO (18:09)
[2019-12-10] MEDS: INSULIN GLARGINE (*BKC) 100 UNITS/ML 40 UNITS SUB-Q (20:33)
[2019-12-10 21:43] LABS: Glucose Point of Care 134 (65-105)
[2019-12-10 22:00] VITALS: BP 112/50; PULSE 76; RESP 18; TEMP 36.9; O2SAT 97
[2019-12-11 06:00] VITALS: BP 116/54; PULSE 69; RESP 18; TEMP 36.2; O2SAT 98
[2019-12-11] MEDS: ENOXAPARIN 40 MG/0.4 ML SYRINGE SUB-Q ×2 (06:31→17:29)
[2019-12-11 06:43] LABS: Glucose Point of Care 85 (65-105)
[2019-12-11 08:40] VITALS: PULSE 94; RESP 16
[2019-12-11] MEDS: INSULIN ASPART (*BKC) 100 UNITS/ML 10 UNITS SUB-Q ×3 (08:46→17:30)
[2019-12-11] MEDS: INSULIN GLARGINE (*BKC) 100 UNITS/ML 30 UNITS SUB-Q (08:47)
[2019-12-11] MEDS: lisinopriL 10 MG TABLET 30 MG PO (08:48)
[2019-12-11] MEDS: ATORVASTATIN 40 MG TABLET PO (08:49)
[2019-12-11] MEDS: metFORMIN HCL 500 MG TABLET 1000 MG PO ×2 (08:49→17:29)
[2019-12-11] MEDS: polyethylene glycoL 3350 17 GM POWD.PACK PO (08:49)
[2019-12-11] MEDS: FLUTICASONE PROPIONATE 0.05% NA SPR 16 GM BTL (*BKC) 2 SPRAY NASAL (08:49)
[2019-12-11] MEDS: CALCIUM CARBONATE (OSCAL) 500 MG TABLET PO ×2 (08:50→17:29)
[2019-12-11] MEDS: TAMSULOSIN HCL 0.4 MG CAPSULE PO (08:50)
[2019-12-11 12:03] LABS: Glucose Point of Care 112 (65-105)
--- NOTE | 2019-12-11 12:57 | WPDNEURORHBP ---
Subjective Date/time seen: 12/11/19 12:57 Interval history: this 64-year-old significantly obese white male who except that he has been noncompliant and managing his diabetes is here after having had surgery for distal right of periprosthetic femur fracture and also is in immobilizer he is doing much better and feeling much better and working with the rehab however the blood sugars have been fluctuating and the diabetes as best is at is fair control I have requested the hospitalist follow him medications were reviewed with him at this point denies any headache nausea vomiting chest pain shortness of breath fever chills or sore throat Review of Systems Review of Systems: All systems reviewed & are unremarkable except as noted in HPI and below Functional Status Ambulation Ability Ambulation Assistive Devices: Walker, Standard Transfers Ability Ability to Transfer In/Out of Chair: Moderate Assistance X 1 Exam Const: General: comfortable and no acute distress HENMT: General nose exam: Normal nares present Mouth: Yes moist mucous membranes Eyes: General: appearance normal, both eyes and all related structures Neck: Neck: supple and no JVD Resp: Effort & Inspection: normal respiratory effort Auscultation: clear to auscultation bilaterally Cardio: Rate: regular rate Rhythm: regular rhythm GI: GI Palp: Yes Soft to palpation Auscultation: normal bowel sounds Skin: General skin exam: normal color and no rashes or lesions noted Neuro: Other: mental status is normal cranial examination is normal the strength is improving evidence of the peripheral neuropathy is there which is stable Extrem: General: normal to inspection Psych: Mental Status: mental status grossly normal Objective Data Vital Signs Vital Signs: Vital Signs - 24 hr 12/10/19 14:00 12/10/19 22:00 12/11/19 06:00 Temperature 36.9 C 36.9 C 36.2 C L Pulse Rate 91 76 69 Respiratory Rate 22 H 18 18 Blood Pressure 107/61 112/50 L 116/54 L Pulse Oximetry 94 97 98 Intake/Output Intake/Output: Intake & Output 12/08/19 12/09/19 12/10/19 12/11/19 23:59 23:59 23:59 23:59 Intake Total 480 720 880 360 Balance 480 720 880 360 Meds/Results Medications: Active Medications Generic Name Dose Route Start Last Admin Trade Name Freq PRN Reason Stop Dose Admin Hydrocodone Bitart/Acetaminophen 1 tab 12/06/19 19:00 12/11/19 11:09 [place] 10-325 Mg PO 1 tab Q4H CARLA Administration Atorvastatin Calcium 40 mg 12/05/19 09:00 12/11/19 08:49 Lipitor PO 40 mg DAILY CARLA Administration Calcium Carbonate 500 mg 12/04/19 17:00 12/11/19 08:50 Oscal 500 Mg PO 500 mg BID CARLA Administration Dextrose 12.5 gm 12/04/19 19:08 Dextrose 50% Syringe IV PUSH PRN PRN Hypoglycemia Protocol Docusate Sodium 100 mg 12/05/19 09:00 12/08/19 08:47 Colace Capsule PO 100 mg DAILY CARLA Administration Enoxaparin Sodium 40 mg 12/06/19 18:00 12/11/19 06:31 Lovenox SUB-Q 40 mg Q12H CARLA Administration Ergocalciferol 50,000 unit 12/16/19 09:00 Drisdol PO [email or web address] [facility] Fluticasone Propionate 2 spray 12/05/19 09:00 12/11/19 08:49 Flonase 0.05% Nasal [place] NASAL 2 spray DAILY CARAL Administration Glucagon 1 mg 12/04/19 19:08 Glucagon For Inj IM PRN PRN Hypoglycemia Protocol Glucose 15 gm 12/04/19 19:08 Glutose 15 PO PRN PRN Hypoglycemia Protocol Dextrose 1,000 mls @ 100 mls/hr 12/04/19 19:08 Dextrose 5% 1,000 Ml IVPB PRN PRN Hypoglycemia Protocol Insulin Aspart 4 - 8 units 12/07/19 08:00 12/11/19 12:26 Novolog SUB-Q Not Given TIDWM [facility] Protocol Insulin Aspart 10 units 12/11/19 08:00 12/11/19 12:26 Novolog SUB-Q 10 units TIDWM CARLA Administration Insulin Glargine 30 units 12/11/19 08:00 12/11/19 08:47 Lantus SUB-Q 30 units 0800 [facility] Administration Insulin Glargine 40 units 12/10/19 21:00
[2019-12-11 14:00] VITALS: BP 121/47; PULSE 95; RESP 18; TEMP 36.1; O2SAT 99
--- NOTE | 2019-12-11 16:19 | PM.IMPN ---
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 Status post ORIF 12/01/2019 at [facility]. Pain is well-controlled. Continue Lovenox 40 milligram subq q12H for DVT prophylaxis. Continue PT/OT Continue fall precautions Continue [place] for pain (2) Swelling of right lower extremity: Code(s): M79.89 - Other specified soft tissue disorders Status: Acute Assessment and Plan: The patient has 1+ pitting edema of the right lower extremity. Venous doppler was negative for DVT. (3) Type 2 diabetes mellitus with peripheral neuropathy: Code(s): E11.42 - Type 2 diabetes mellitus with diabetic polyneuropathy Status: Inactive Assessment and Plan: Patient reports he follows with an fisher trawl line. He tells me his home regimen consist of sliding scale NovoLog, metformin, and weekly Trulicity. However, his home medication only lists metformin. Hemoglobin A1c was 7.6% on 12/05/19. Patient evaluated by CDE on 12/06/19. CDE spoke to patient's fisher trawl line for recommendations which have been implemented. Blood sugars initially ranged from 250-350. Blood sugars following endocrinology recommendations were well-controlled. Blood sugars were low so lantus was held the night of 12/08 and AM 12/09. Blood sugar was 414 at lunch on 12/09. He was given his meal dose of novolog and 30 units lantus. Repeat blood sugar was 136. His lantus was adjusted and his blood sugars are well-controlled on his current regimen. Continue high-dose sliding scale insulin, Accu-Cheks ACHS, and hypoglycemic protocol. Continue metformin. Will decrease Lantus to 30 units qAM and and 40 units HS and monitor closely Novolog 10 units with meals Continue diabetic carb consistent diet Continue to monitor closely . (4) Constipation due to opioid therapy: Code(s): K59.03 - Drug induced constipation; T40.2X5A - Adverse effect of other opioids, initial encounter Status: Resolved Assessment and Plan: Resolved. His bowel function seems to have returned to normal. Continue miralax PRN constipation (5) Hypertension: Qualifiers: Hypertension type: essential hypertension Qualified Code(s): I10 - Essential (primary) hypertension Code(s): I10 - Essential (primary) hypertension Status: Acute Assessment and Plan: Blood pressures were reviewed and are stable. Continue lisinopril 30mg for now (6) Hyponatremia: Code(s): E87.1 - Hypo-osmolality and hyponatremia Status: Acute Assessment and Plan: At presentation sodium was 134, then decreased to 131. FeNa is 0.6%. TSH and random cortisol are WNL. The patient's hyponatremia may be due to the patient's hyperglycemia as well as post-op pain. He may have a chronic component as well but we have no prior labs available for review. Sodium was 135 12/09. I suspect this will continue to improve with glycemic control. Continue to monitor (7) Dyslipidemia: Code(s): E78.5 - Hyperlipidemia, unspecified Status: Acute Assessment and Plan: Patient has history of hyperlipidemia. Lipid panel was repeated and is WNL with the exception of low HDL. Continue atorvastatin. Patient will benefit from lifestyle modifications including beginning an exercise regimen once cleared from orthopedic standpoint. (8) Benign prostatic hyperplasia: Qualifiers: Lower urinary tract symptom presence: symptoms absent Qualified Code(s): N40.0 - Benign prostatic hyperplasia without lower urinary tract symptoms Code(s): N40.0 - Benign prostatic
[2019-12-11 18:18] LABS: Glucose Point of Care 94 (65-105)
[2019-12-11] MEDS: INSULIN GLARGINE (*BKC) 100 UNITS/ML 40 UNITS SUB-Q (20:42)
[2019-12-11 20:52] LABS: Glucose Point of Care 101 (65-105)
[2019-12-11 22:00] VITALS: BP 117/59; PULSE 88; RESP 20; TEMP 36.3; O2SAT 99
[2019-12-12 01:37] LABS: Osmolality, Urine 499 mOsm/kg (50-1200)
[2019-12-12 05:36] LABS: Blood Urea Nitrogen 20 mg/dL (9-20); Calcium 8.5 mg/dL (8.4-10.2); Carbon Dioxide 29 mmol/L (22-30); Chloride 101 mmol/L (98-107); Estimated CRCL calculation 96 ml/min; Estimated Glomerular Filt Rate > 60; Glucose 152 mg/dL (75-110); Potassium 4.4 mmol/L (3.4-5.0); Sodium 136 mmol/L (137-145)
[2019-12-12 06:00] VITALS: BP 126/68; PULSE 90; RESP 20; TEMP 36.2; O2SAT 98
[2019-12-12 06:08] LABS: Basophils Absolute Auto 0.1 K/mm3 (0.0-0.1); Basophils Percent Auto 0.5 % (0.2-1.2); Eosinophils Absolute Auto 0.2 K/mm3 (0-0.3); Eosinophils Percent Auto 2.4 % (0-4.4); Hematocrit 31.2 % (42.0-52.0); Immature Granulocyte Absolute 0.14 K/mm3 (0.00-0.031); Immature Granulocyte Percent A 1.5 % (0-0.5); Lymphocytes Percent Auto 19.1 % (18.3-44.2); Mean Corpuscular HGB Conc 32.1 g/dl (32-36); Mean Corpuscular Hemoglobin 29.7 pg (26-34); Mean Corpuscular Volume 92.6 fl (80-100); Mean Platelet Volume 9.1 fl (7.4-10.4); Monocytes Absolute Auto 0.7 K/mm3 (0.1-0.6); Monocytes Percent Auto 7.4 % (2.6-8.5); Neutrophils Absolute Auto 6.5 K/mm3 (1.3-6.7); Neutrophils Percent Auto 69.1 % (45.5-73.1); Platelet Count Result 387 k/mm3 (150-375); Red Blood Count 3.37 M/mm3 (4.6-6.20); Red Cell Distribution Width 12.6 % (11.5-14.5); White Blood Count 9.4 K/mm3 (4.5-10.0)
[2019-12-12] MEDS: ENOXAPARIN 40 MG/0.4 ML SYRINGE SUB-Q ×2 (06:36→18:28)
[2019-12-12 06:54] LABS: Glucose Point of Care 160 (65-105)
[2019-12-12] MEDS: INSULIN ASPART (*BKC) 100 UNITS/ML 10 UNITS SUB-Q (08:19)
[2019-12-12] MEDS: INSULIN GLARGINE (*BKC) 100 UNITS/ML 30 UNITS SUB-Q (08:19)
[2019-12-12] MEDS: metFORMIN HCL 500 MG TABLET 1000 MG PO ×2 (08:21→18:28)
[2019-12-12] MEDS: FLUTICASONE PROPIONATE 0.05% NA SPR 16 GM BTL (*BKC) 2 SPRAY NASAL (08:22)
[2019-12-12] MEDS: ATORVASTATIN 40 MG TABLET PO (08:22)
[2019-12-12] MEDS: TAMSULOSIN HCL 0.4 MG CAPSULE PO (08:22)
[2019-12-12] MEDS: CALCIUM CARBONATE (OSCAL) 500 MG TABLET PO ×2 (08:22→18:27)
[2019-12-12] MEDS: lisinopriL 10 MG TABLET 30 MG PO (08:22)
--- NOTE | 2019-12-12 11:55 | PCDIET ---
Nutrition Follow-Up Complete: Nutrition Diagnosis: Inadequate energy intake related to obesity as evidenced by BMI: 46.1 Nutrition Goal: Adequate intake of at least 75% of meals Goal met. Patient consuming 100% of most meals on diabetic diet which is appropriate. Last recorded weight is 133.4 kg. Recommend obtaining new weight. Bowel Motility: +BM 12/11/19 per nurse aid. Labs Reviewed: Glu (160), Na (136) Meds Noted: Oscal 500, Drisdol, Novolog, Lantus, Lactulose, Glucophage, Miralax, Colace Additional Notes: Right leg incision with dressing. No documented pressure sores. Will continue to monitor with same goal. Nutrition Monitoring and Evaluation: Follow up in 7 days.
[2019-12-12 12:59] LABS: Glucose Point of Care 77 (65-105)
[2019-12-12 12:59] LABS: Glucose Point of Care 67 (65-105)
[2019-12-12 13:35] LABS: Glucose Point of Care 100 (65-105)
[2019-12-12 14:00] VITALS: BP 131/60; PULSE 86; RESP 18; TEMP 36.1; O2SAT 99
--- NOTE | 2019-12-12 15:07 | PM.IMPN ---
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 He is s/p ORIF 12/01/[address] [facility]. He is progressing well from a PT/OT standpoint and his pain is well-controlled overall. Continue Lovenox 40mg SQ q12H for DVT prophylaxis Continue PT/OT Continue fall precautions Continue [place]ona for pain (2) Type 2 diabetes mellitus with peripheral neuropathy: Code(s): E11.42 - Type 2 diabetes mellitus with diabetic polyneuropathy Status: Inactive Assessment and Plan: The patient is established with endocrinology. He was on sliding scale novolog, metformin, and trulicity prior to admission. Hemoglobin A1c was 7.6% on 12/05/19. He was evaluated by CDE on 12/06/19. CDE spoke to patient's commercial diver for recommendations which have been implemented. Blood sugars initially ranged from 250-350. Blood sugars following endocrinology recommendations were well-controlled with some low readings so lantus and his meal novolog were decreased and blood sugars have been well-controlled. Continue high-dose sliding scale insulin, Accu-Cheks ACHS, and hypoglycemic protocol Continue metformin Continue Lantus 30 units qAM and 40 units HS and monitor closely Will hold novolog with meals for now as blood sugars have been low today and this was held. Continue diabetic carb consistent diet Continue to monitor closely (3) Constipation due to opioid therapy: Code(s): K59.03 - Drug induced constipation; T40.2X5A - Adverse effect of other opioids, initial encounter Status: Resolved Assessment and Plan: Resolved. His bowel function seems to have returned to normal. Continue miralax PRN constipation (4) Hypertension: Qualifiers: Hypertension type: essential hypertension Qualified Code(s): I10 - Essential (primary) hypertension Code(s): I10 - Essential (primary) hypertension Status: Acute Assessment and Plan: Blood pressures are at target. Continue lisinopril 30mg (5) Hyponatremia: Code(s): E87.1 - Hypo-osmolality and hyponatremia Status: Acute Assessment and Plan: At presentation sodium was 134, then decreased to 131. FeNa is 0.6%. TSH and random cortisol are WNL. The patient's hyponatremia may be due to the patient's hyperglycemia as well as post-op pain. He may have a chronic component as well but we have no prior labs available for review. Sodium was repeated 12/11 and is 136. Continue to monitor (6) Dyslipidemia: Code(s): E78.5 - Hyperlipidemia, unspecified Status: Acute Assessment and Plan: Patient has history of hyperlipidemia. Lipid panel was repeated and is WNL with the exception of low HDL. Continue atorvastatin. Patient will benefit from lifestyle modifications including beginning an exercise regimen once cleared from orthopedic standpoint. (7) Benign prostatic hyperplasia: Qualifiers: Lower urinary tract symptom presence: symptoms absent Qualified Code(s): N40.0 - Benign prostatic hyperplasia without lower urinary tract symptoms Code(s): N40.0 - Benign prostatic hyperplasia without lower urinary tract symptoms Status: Acute Assessment and Plan: Chronic without acute issues. Continue tamsulosin. (8) Swelling of right lower extremity: Code(s): M79.89 - Other specified soft tissue disorders Status: Acute Assessment and Plan: The patient had 1+ pitting edema of the right lower extremity which is improving. Venous doppler was negative for DVT. I suspect that this is just post-op s
[2019-12-12 17:18] LABS: Glucose Point of Care 104 (65-105)
[2019-12-12] MEDS: INSULIN GLARGINE (*BKC) 100 UNITS/ML 40 UNITS SUB-Q (21:15)
[2019-12-12 22:00] VITALS: PULSE 79; RESP 18; TEMP 36.3; O2SAT 94
[2019-12-13 03:28] LABS: Glucose Point of Care 135 (65-105)
[2019-12-13 06:00] VITALS: BP 124/63; PULSE 77; RESP 18; TEMP 36.5; O2SAT 99
[2019-12-13] MEDS: ENOXAPARIN 40 MG/0.4 ML SYRINGE SUB-Q ×2 (06:49→17:26)
[2019-12-13] MEDS: INSULIN GLARGINE (*BKC) 100 UNITS/ML 30 UNITS SUB-Q (07:40)
[2019-12-13] MEDS: metFORMIN HCL 500 MG TABLET 1000 MG PO ×2 (07:41→17:26)
[2019-12-13] MEDS: polyethylene glycoL 3350 17 GM POWD.PACK PO (08:18)
[2019-12-13] MEDS: CALCIUM CARBONATE (OSCAL) 500 MG TABLET PO ×2 (08:18→17:27)
[2019-12-13] MEDS: lisinopriL 10 MG TABLET 30 MG PO (08:18)
[2019-12-13] MEDS: FLUTICASONE PROPIONATE 0.05% NA SPR 16 GM BTL (*BKC) 2 SPRAY NASAL (08:18)
[2019-12-13] MEDS: TAMSULOSIN HCL 0.4 MG CAPSULE PO (08:19)
[2019-12-13] MEDS: ATORVASTATIN 40 MG TABLET PO (08:19)
[2019-12-13 11:16] LABS: Glucose Point of Care 96 (65-105)
[2019-12-13 12:39] LABS: Glucose Point of Care 108 (65-105)
--- NOTE | 2019-12-13 13:02 | WPDNEURORHBP ---
Subjective Date/time seen: 12/12/19 13:02 Interval history: This 64-year-old diabetic male is here after having surgery for the right distal periprosthetic femur fracture which is in immobilizer he is doing fairly well his diabetic control is better denies any headache nausea vomiting chest pain shortness of breath moving forward in the rehab Review of Systems Review of Systems: All systems reviewed & are unremarkable except as noted in HPI and below Functional Status Ambulation Ability Ability to Ambulate 10 Feet: Contact Guard Ambulation Assistive Devices: Walker, Standard Transfers Ability Ability to Transfer In/Out of Chair: Contact Guard Exam Const: General: comfortable and no acute distress HENMT: General nose exam: Normal nares present Mouth: Yes moist mucous membranes Eyes: General: appearance normal, both eyes and all related structures Neck: Neck: supple and no JVD Resp: Effort & Inspection: normal respiratory effort Auscultation: clear to auscultation bilaterally Cardio: Rate: regular rate Rhythm: regular rhythm GI: GI Palp: Yes Soft to palpation Auscultation: normal bowel sounds Skin: General skin exam: normal color and no rashes or lesions noted Neuro: Other: patient remains awake alert well oriented in time place person speech language functions are normal cranial examination is normal his strength is coming back and his overall pain control is much better the limitations are because of the fracture and the weight restrictions Extrem: Other: the right lower extremity is in the immobilizer the incision seemingly is clean Psych: Mental Status: mental status grossly normal Objective Data Vital Signs Vital Signs: Vital Signs - 24 hr 12/12/19 14:00 12/12/19 22:00 12/13/19 06:00 Temperature 36.1 C L 36.3 C L 36.5 C Pulse Rate 86 79 77 Respiratory Rate 18 18 18 Blood Pressure 131/60 124/63 Pulse Oximetry 99 94 99 Intake/Output Intake/Output: Intake & Output 12/10/19 12/11/19 12/12/19 12/13/19 23:59 23:59 23:59 23:59 Intake Total 880 1080 840 360 Balance 880 1080 840 360 Meds/Results Medications: Active Medications Generic Name Dose Route Start Last Admin Trade Name Freq PRN Reason Stop Dose Admin Hydrocodone Bitart/Acetaminophen 1 tab 12/06/19 19:00 12/13/19 11:06 [place] 10-325 Mg PO 1 tab Q4H CARLA Administration Atorvastatin Calcium 40 mg 12/05/19 09:00 12/13/19 08:19 Lipitor PO 40 mg DAILY CARLA Administration Calcium Carbonate 500 mg 12/04/19 17:00 12/13/19 08:18 Oscal 500 Mg PO 500 mg BID CARLA Administration Dextrose 12.5 gm 12/04/19 19:08 Dextrose 50% Syringe IV PUSH PRN PRN Hypoglycemia Protocol Enoxaparin Sodium 40 mg 12/06/19 18:00 12/13/19 06:49 Lovenox SUB-Q 40 mg Q12H CARLA Administration Ergocalciferol 50,000 unit 12/16/19 09:00 Drisdol PO [id number] [facility] Fluticasone Propionate 2 spray 12/05/19 09:00 12/13/19 08:18 Flonase 0.05% Nasal [place] NASAL 2 spray DAILY CARLA Administration Glucagon 1 mg 12/04/19 19:08 Glucagon For Inj IM PRN PRN Hypoglycemia Protocol Glucose 15 gm 12/04/19 19:08 Glutose 15 PO PRN PRN Hypoglycemia Protocol Dextrose 1,000 mls @ 100 mls/hr 12/04/19 19:08 Dextrose 5% 1,000 Ml IVPB PRN PRN Hypoglycemia Protocol Insulin Aspart 4 - 8 units 12/07/19 08:00 12/13/19 12:46 Novolog SUB-Q Not Given TIDWM [facility] Protocol Insulin Aspart 5 units 12/12/19 15:33 Novolog SUB-Q TIDWM CARLA Insulin Glargine 30 units 12/11/19 08:00 12/13/19 07:40 Lantus SUB-Q 30 units 0800 CARLA Administration Insulin Glargine 40 units 12/10/19 21:00 12/12/19 21:15 Lantus SUB-Q 40 units HS CARLA Administration Lactulose 30 gm 12/08/19 11:55 12/09/19 08:45 Lactulose PO 30 gm QAM PRN Administration Constipation Lisinopril 30 mg 12/11/19 09:00 12/13/19 08:18
[2019-12-13 14:00] VITALS: BP 130/65; PULSE 86; RESP 16; TEMP 36.1; O2SAT 97
--- NOTE | 2019-12-13 15:38 | PM.IMPN ---
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 He is s/p ORIF 12/01/2019 at [facility]. He is progressing well from a PT/OT standpoint and his pain is well-controlled overall. Continue Lovenox 40mg SQ q12H for DVT prophylaxis Continue PT/OT Continue fall precautions Continue [place] for pain (2) Type 2 diabetes mellitus with peripheral neuropathy: Code(s): E11.42 - Type 2 diabetes mellitus with diabetic polyneuropathy Status: Inactive Assessment and Plan: The patient is established with endocrinology. He was on sliding scale novolog, metformin, and trulicity prior to admission. Hemoglobin A1c was 7.6% on 12/05/19. He was evaluated by CDE on 12/06/19. CDE spoke to patient's deburrer machine for recommendations which have been implemented. Blood sugars initially ranged from 250-350. Encocrinology recommendations were initiated. Lantus was decreased and AC novolog held as blood sugars were low. His blood sugars are well-controlled on his current regimen. Continue high-dose sliding scale insulin, Accu-Cheks ACHS, and hypoglycemic protocol Continue metformin Continue Lantus 30 units qAM and 40 units HS and monitor closely Will discontinue novolog with meals for now as blood sugars are at target with it held Continue diabetic carb consistent diet Discussed that he may need to increase his insulin if his diet is not as strict after discharge and he will need to follow-up with his PCP. Continue education from the patient educator for discharge planning/blood sugar monitoring at home Continue to monitor closely (3) Constipation due to opioid therapy: Code(s): K59.03 - Drug induced constipation; T40.2X5A - Adverse effect of other opioids, initial encounter Status: Resolved Assessment and Plan: Resolved. Continue miralax PRN constipation (4) Hypertension: Qualifiers: Hypertension type: essential hypertension Qualified Code(s): I10 - Essential (primary) hypertension Code(s): I10 - Essential (primary) hypertension Status: Acute Assessment and Plan: Blood pressures are at target. Continue lisinopril 30mg (5) Hyponatremia: Code(s): E87.1 - Hypo-osmolality and hyponatremia Status: Acute Assessment and Plan: At presentation sodium was 134, then decreased to 131. FeNa is 0.6%. TSH and random cortisol are WNL. The patient's hyponatremia may be due to the patient's hyperglycemia as well as post-op pain. He may have a chronic component as well but we have no prior labs available for review. Sodium was repeated 12/11 and was 136. Continue to monitor (6) Dyslipidemia: Code(s): E78.5 - Hyperlipidemia, unspecified Status: Acute Assessment and Plan: Patient has history of hyperlipidemia. Lipid panel was repeated and is WNL with the exception of low HDL. Continue atorvastatin. Patient will benefit from lifestyle modifications including beginning an exercise regimen once cleared from orthopedic standpoint. (7) Benign prostatic hyperplasia: Qualifiers: Lower urinary tract symptom presence: symptoms absent Qualified Code(s): N40.0 - Benign prostatic hyperplasia without lower urinary tract symptoms Code(s): N40.0 - Benign prostatic hyperplasia without lower urinary tract symptoms Status: Acute Assessment and Plan: Chronic without acute issues. Continue tamsulosin. (8) Swelling of right lower extremity: Code(s): M79.89 - Other specified soft tissue disorders Status: Acute Asses
[2019-12-13 17:11] LABS: Glucose Point of Care 121 (65-105)
[2019-12-13 20:14] LABS: Glucose Point of Care 173 (65-105)
[2019-12-13] MEDS: INSULIN GLARGINE (*BKC) 100 UNITS/ML 40 UNITS SUB-Q (20:25)
[2019-12-13 22:00] VITALS: BP 131/71; PULSE 78; RESP 20; TEMP 36.3; O2SAT 97
[2019-12-14 06:00] VITALS: BP 121/66; PULSE 71; RESP 20; TEMP 36; O2SAT 95
[2019-12-14] MEDS: ENOXAPARIN 40 MG/0.4 ML SYRINGE SUB-Q ×2 (06:44→17:48)
[2019-12-14 06:50] LABS: Glucose Point of Care 102 (65-105)
[2019-12-14] MEDS: INSULIN GLARGINE (*BKC) 100 UNITS/ML 30 UNITS SUB-Q (08:19)
[2019-12-14] MEDS: ATORVASTATIN 40 MG TABLET PO (08:20)
[2019-12-14] MEDS: metFORMIN HCL 500 MG TABLET 1000 MG PO ×2 (08:20→17:48)
[2019-12-14] MEDS: FLUTICASONE PROPIONATE 0.05% NA SPR 16 GM BTL (*BKC) 2 SPRAY NASAL (08:20)
[2019-12-14] MEDS: CALCIUM CARBONATE (OSCAL) 500 MG TABLET PO ×2 (08:21→17:47)
[2019-12-14] MEDS: TAMSULOSIN HCL 0.4 MG CAPSULE PO (08:21)
[2019-12-14] MEDS: lisinopriL 10 MG TABLET 30 MG PO (08:21)
--- NOTE | 2019-12-14 11:25 | WPDNEURORHBP ---
Subjective Date/time seen: 12/14/19 11:25 S/p right periprosthetic fracture surgery andDM ,doing well no complaints Review of Systems Review of Systems: All systems reviewed & are unremarkable except as noted in HPI and below Functional Status Ambulation Ability Ability to Ambulate 10 Feet: Contact Guard Ambulation Assistive Devices: Walker, Standard Transfers Ability Ability to Transfer In/Out of Chair: Contact Guard Exam Const: General: cooperative, comfortable and no acute distress HENMT: Ears: hearing grossly normal bilaterally General nose exam: Normal external nose present and No nasal discharge present Mouth: Yes Normal oral and palatal mucosa present Eyes: General: appearance normal, both eyes and all related structures Visual Martins: normal visual martins by confrontation Alignment and Position: alignment normal Periorbital: periorbital findings normal Eyelids: eyelids normal Conjunctivae: conjunctivae normal Sclera: sclerae normal Cornea: corneas normal Pupils: Equal, round and reactive pupils present EOM: EOMs intact bilaterally Resp: Effort & Inspection: normal respiratory effort and able to speak in complete sentences Auscultation: clear to auscultation bilaterally Cardio: Rate: regular rate Rhythm: regular rhythm GI: Auscultation: normal bowel sounds Skin: General skin exam: no rashes or lesions noted Neuro: General: patient oriented x3 and moves all extremities Cranial nerves: Yes CN's II-XII intact bilaterally Cognition (Neuro): normal cognition Speech: normal speech Motor exam (neuro): 5/5 motor strength present throughout Sensory Exam: normal sensation Psych: Appearance: grossly normal Affect: normal affect Attitude: cooperative Thought process: Normal thought process present Thought content: Yes Normal thought content present Insight: Good insight present (Psych) Judgement: Good judgement present (Psych) Objective Data Vital Signs Vital Signs: Vital Signs - 24 hr 12/13/19 14:00 12/13/19 22:00 12/14/19 06:00 Temperature 36.1 C L 36.3 C L 36.0 C L Pulse Rate 86 78 71 Respiratory Rate 16 20 20 Blood Pressure 130/65 131/71 121/66 Pulse Oximetry 97 97 95 Intake/Output Intake/Output: Intake & Output 12/11/19 12/12/19 12/13/19 12/14/19 23:59 23:59 23:59 23:59 Intake Total 1080 840 840 300 Balance 1080 840 840 300 Meds/Results Medications: Active Medications Generic Name Dose Route Start Last Admin Trade Name Freq PRN Reason Stop Dose Admin Hydrocodone Bitart/Acetaminophen 1 tab 12/06/19 19:00 12/14/19 11:00 [place] 10-325 Mg PO 1 tab Q4H CARLA Administration Atorvastatin Calcium 40 mg 12/05/19 09:00 12/14/19 08:20 Lipitor PO 40 mg DAILY CARLA Administration Calcium Carbonate 500 mg 12/04/19 17:00 12/14/19 08:21 Oscal 500 Mg PO 500 mg BID CARLA Administration Dextrose 12.5 gm 12/04/19 19:08 Dextrose 50% Syringe IV PUSH PRN PRN Hypoglycemia Protocol Enoxaparin Sodium 40 mg 12/06/19 18:00 12/14/19 06:44 Lovenox SUB-Q 40 mg Q12H [facility] Administration Ergocalciferol 50,000 unit 12/16/19 09:00 Drisdol PO Mo@0900 [facility] Fluticasone Propionate 2 spray 12/05/19 09:00 12/14/19 08:20 Flonase 0.05% Nasal [place] NASAL 2 spray DAILY [facility] Administration Glucagon 1 mg 12/04/19 19:08 Glucagon For Inj IM PRN PRN Hypoglycemia Protocol Glucose 15 gm 12/04/19 19:08 Glutose 15 PO PRN PRN Hypoglycemia Protocol Dextrose 1,000 mls @ 100 mls/hr 12/04/19 19:08 Dextrose 5% 1,000 Ml IVPB PRN PRN Hypoglycemia Protocol Insulin Aspart 4 - 8 units 12/07/19 08:00 12/14/19 08:20 Novolog SUB-Q Not Given TIDWM [facility] Protocol Insulin Glargine 30 units 12/11/19 08:00 12/14/19 08:19 Lantus SUB-Q 30 units 0800 [facility] Administration Insulin Glargine 40 units 12/10/19 21:00 12/13/19 20:25 Lantus SUB-Q 40 units [facility] Adm
[2019-12-14 11:45] LABS: Glucose Point of Care 115 (65-105)
[2019-12-14 14:00] VITALS: BP 131/69; PULSE 98; RESP 20; TEMP 36.1; O2SAT 95
--- NOTE | 2019-12-14 15:41 | PM.IMPN ---
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 He is s/p ORIF 12/01/2019 at [facility]. He is progressing well from a PT/OT standpoint and his pain is well-controlled overall. Continue Lovenox 40mg SQ q12H for DVT prophylaxis Continue PT/OT Continue fall precautions Continue [place] for pain (2) Type 2 diabetes mellitus with peripheral neuropathy: Code(s): E11.42 - Type 2 diabetes mellitus with diabetic polyneuropathy Status: Inactive Assessment and Plan: The patient is established with endocrinology. He was on sliding scale novolog, metformin, and trulicity prior to admission. Hemoglobin A1c was 7.6% on 12/05/19. He was evaluated by CDE on 12/06/19. CDE spoke to patient's mixing machine attendant for recommendations which have been implemented. Blood sugars initially ranged from 250-350. Encocrinology recommendations were initiated. Lantus was decreased and AC novolog held as blood sugars were low. His blood sugars are well-controlled on his current regimen. Continue high-dose sliding scale insulin, Accu-Cheks ACHS, and hypoglycemic protocol Continue metformin Continue Lantus 30 units qAM and 40 units HS and monitor closely. Novolog with meals was discontinued 12/12 for now as blood sugars are at target. I anticipate that he will have to need to increase his lantus at discharge when his diet returns to normal. His mixing machine attendant initially recommended lantus 50 units qAM, lantus 60 units HS and novolog 30 units with meals which was decreased due to low blood sugars. Continue diabetic carb consistent diet Continue education from the cosmetology educator for discharge planning/blood sugar monitoring at home Continue to monitor closely Will plan to sign off as blood sugars are well-controlled on his current regimen. He will need to follow-up with his mixing machine attendant outpatient and will likely need to resume his prior to admission regimen once his diet returns to his previous diet outside the hospital. (3) Constipation due to opioid therapy: Code(s): K59.03 - Drug induced constipation; T40.2X5A - Adverse effect of other opioids, initial encounter Status: Resolved Assessment and Plan: Resolved. Continue miralax PRN constipation (4) Hypertension: Qualifiers: Hypertension type: essential hypertension Qualified Code(s): I10 - Essential (primary) hypertension Code(s): I10 - Essential (primary) hypertension Status: Acute Assessment and Plan: Blood pressures are at target. Continue lisinopril (5) Hyponatremia: Code(s): E87.1 - Hypo-osmolality and hyponatremia Status: Acute Assessment and Plan: At presentation sodium was 134, then decreased to 131. FeNa is 0.6%. TSH and random cortisol are WNL. The patient's hyponatremia may be due to the patient's hyperglycemia as well as post-op pain. He may have a chronic component as well but we have no prior labs available for review. Sodium was repeated 12/11 and was 136. Continue to monitor (6) Dyslipidemia: Code(s): E78.5 - Hyperlipidemia, unspecified Status: Acute Assessment and Plan: Patient has history of hyperlipidemia. Lipid panel was repeated and is WNL with the exception of low HDL. Continue atorvastatin. Patient will benefit from lifestyle modifications including beginning an exercise regimen once cleared from orthopedic standpoint. (7) Benign prostatic hyperplasia: Qualifiers: Lower urinary tract symptom presence: symptoms absent Qualified Code(s): N40.0 - Benign pro
[2019-12-14 17:11] LABS: Glucose Point of Care 106 (65-105)
[2019-12-14 20:48] LABS: Glucose Point of Care 169 (65-105)
[2019-12-14] MEDS: INSULIN GLARGINE (*BKC) 100 UNITS/ML 40 UNITS SUB-Q (20:48)
[2019-12-14 21:21] VITALS: BP 125/63; PULSE 76; RESP 18; TEMP 36.2; O2SAT 98
[2019-12-15 06:00] VITALS: BP 119/59; PULSE 70; RESP 18; TEMP 36.4; O2SAT 97
[2019-12-15] MEDS: ENOXAPARIN 40 MG/0.4 ML SYRINGE SUB-Q ×2 (06:44→16:50)
[2019-12-15 06:59] LABS: Glucose Point of Care 93 (65-105)
[2019-12-15 08:00] VITALS: PULSE 70; RESP 18; O2SAT 97
[2019-12-15] MEDS: metFORMIN HCL 500 MG TABLET 1000 MG PO ×2 (08:32→16:50)
[2019-12-15] MEDS: lisinopriL 10 MG TABLET 30 MG PO (08:32)
[2019-12-15] MEDS: CALCIUM CARBONATE (OSCAL) 500 MG TABLET PO ×2 (08:33→16:50)
[2019-12-15] MEDS: FLUTICASONE PROPIONATE 0.05% NA SPR 16 GM BTL (*BKC) 2 SPRAY NASAL (08:33)
[2019-12-15] MEDS: TAMSULOSIN HCL 0.4 MG CAPSULE PO (08:33)
[2019-12-15] MEDS: ATORVASTATIN 40 MG TABLET PO (08:33)
[2019-12-15 11:53] LABS: Glucose Point of Care 119 (65-105)
[2019-12-15 14:00] VITALS: BP 123/62; PULSE 79; RESP 20; TEMP 36.9; O2SAT 97
[2019-12-15] MEDS: polyethylene glycoL 3350 17 GM POWD.PACK PO (16:57)
[2019-12-15 17:06] LABS: Glucose Point of Care 136 (65-105)
[2019-12-15 20:50] VITALS: BP 129/64; PULSE 79; RESP 18; TEMP 36.4; O2SAT 98
[2019-12-15] MEDS: DOCUSATE SODIUM 100 MG CAPSULE PO (21:21)
[2019-12-15] MEDS: INSULIN GLARGINE (*BKC) 100 UNITS/ML 40 UNITS SUB-Q (21:22)
[2019-12-15 21:41] LABS: Glucose Point of Care 130 (65-105)
[2019-12-16 06:00] VITALS: BP 115/69; PULSE 69; RESP 16; TEMP 36.6; O2SAT 98
[2019-12-16] MEDS: ENOXAPARIN 40 MG/0.4 ML SYRINGE SUB-Q ×2 (06:40→17:39)
[2019-12-16 06:48] LABS: Glucose Point of Care 132 (65-105)
[2019-12-16] MEDS: INSULIN GLARGINE (*BKC) 100 UNITS/ML 30 UNITS SUB-Q (08:04)
[2019-12-16] MEDS: FLUTICASONE PROPIONATE 0.05% NA SPR 16 GM BTL (*BKC) 2 SPRAY NASAL (08:05)
[2019-12-16] MEDS: metFORMIN HCL 500 MG TABLET 1000 MG PO ×2 (08:05→17:39)
[2019-12-16] MEDS: DOCUSATE SODIUM 100 MG CAPSULE PO ×2 (08:06→21:08)
[2019-12-16] MEDS: ATORVASTATIN 40 MG TABLET PO (08:06)
[2019-12-16] MEDS: CALCIUM CARBONATE (OSCAL) 500 MG TABLET PO ×2 (08:06→17:39)
[2019-12-16] MEDS: lisinopriL 10 MG TABLET 30 MG PO (08:06)
[2019-12-16] MEDS: ERGOCALCIFEROL 50,000 UNIT CAPSULE 50000 UNITS PO (08:06)
[2019-12-16] MEDS: TAMSULOSIN HCL 0.4 MG CAPSULE PO (08:07)
[2019-12-16 11:44] LABS: Glucose Point of Care 134 (65-105)
[2019-12-16 14:00] VITALS: BP 125/62; PULSE 80; RESP 20; TEMP 36.8; O2SAT 98
--- NOTE | 2019-12-16 15:37 | WPDNEURORHBP ---
Subjective Date/time seen: S/Pright periprosthetic fracture withDM doing well no [id number]/25/20 15:37 Review of Systems Review of Systems: All systems reviewed & are unremarkable except as noted in HPI and below Functional Status Ambulation Ability Ability to Ambulate 10 Feet: Contact Guard Ambulation Assistive Devices: Walker, Standard Transfers Ability Ability to Transfer In/Out of Chair: Contact Guard Exam Const: General: cooperative, comfortable, no acute distress, well developed, alert and awake Nutritional Appearance: obese Orientation/consciousness: patient oriented x3 Limitations: no limitations HENMT: Head: normal to inspection Eyes: General: appearance normal, both eyes and all related structures Neck: Neck: full ROM Resp: Effort & Inspection: normal respiratory effort and able to speak in complete sentences Auscultation: clear to auscultation bilaterally Cardio: Rate: regular rate Rhythm: regular rhythm GI: Auscultation: normal bowel sounds Skin: General skin exam: no rashes or lesions noted Neuro: General: patient oriented x3 and moves all extremities Cranial nerves: Yes CN's II-XII intact bilaterally, Yes Equal, round and reactive pupils present, Yes Bilaterally intact EOM present, Yes Nystagmus not present, Yes Normal facial strength present, Yes Midline tongue present, Yes Normal hearing present, Yes Ability to bilaterally rotate head present and Yes Ability to bilaterally elevate shoulders present Cognition (Neuro): normal cognition Speech: normal speech Motor exam (neuro): 5/5 motor strength present throughout Sensory Exam: normal sensation Psych: Appearance: grossly normal Objective Data Vital Signs Vital Signs: Vital Signs - 24 hr 12/15/19 20:50 12/16/19 06:00 12/16/19 14:00 Temperature 36.4 C L 36.6 C 36.8 C Pulse Rate 79 69 80 Respiratory Rate 18 16 20 Blood Pressure 129/64 115/69 125/62 Pulse Oximetry 98 98 98 Intake/Output Intake/Output: Intake & Output 12/13/19 12/14/19 12/15/19 12/16/19 23:59 23:59 23:59 23:59 Intake Total 840 860 780 480 Balance 840 860 780 480 Meds/Results Medications: Active Medications Generic Name Dose Route Start Last Admin Trade Name Freq PRN Reason Stop Dose Admin Hydrocodone Bitart/Acetaminophen 1 tab 12/16/19 03:00 12/16/19 11:12 [place] 10-325 Mg PO 1 tab Q4H CARLA Administration Atorvastatin Calcium 40 mg 12/05/19 09:00 12/16/19 08:06 Lipitor PO 40 mg DAILY CARLA Administration Calcium Carbonate 500 mg 12/04/19 17:00 12/16/19 08:06 Oscal 500 Mg PO 500 mg BID CARLA Administration Dextrose 12.5 gm 12/04/19 19:08 Dextrose 50% Syringe IV PUSH PRN PRN Hypoglycemia Protocol Docusate Sodium 100 mg 12/15/19 21:00 12/16/19 08:06 Colace Capsule PO 100 mg Q12HR CARLA Administration Enoxaparin Sodium 40 mg 12/06/19 18:00 12/16/19 06:40 Lovenox SUB-Q 40 mg Q12H CARLA Administration Ergocalciferol 50,000 unit 12/16/19 09:00 12/16/19 08:06 Drisdol PO 50,000 unit Mo@0900 CAR[facility] Administration Fluticasone Propionate 2 spray 12/05/19 09:00 12/16/19 08:05 Flonase 0.05% Nasal [place] NASAL 2 spray DAILY CARLA Administration Glucagon 1 mg 12/04/19 19:08 Glucagon For Inj IM PRN PRN Hypoglycemia Protocol Glucose 15 gm 12/04/19 19:08 Glutose 15 PO PRN PRN Hypoglycemia Protocol Dextrose 1,000 mls @ 100 mls/hr 12/04/19 19:08 Dextrose 5% 1,000 Ml IVPB PRN PRN Hypoglycemia Protocol Insulin Aspart 4 - 8 units 12/07/19 08:00 12/16/19 12:51 Novolog SUB-Q Not Given TIDWM [facility] Protocol Insulin Glargine 30 units 12/11/19 08:00 12/16/19 08:04 Lantus SUB-Q 30 units 0800 CARLA Administration Insulin Glargine 40 units 12/10/19 21:00 12/15/19 21:22 Lantus SUB-Q 40 units HS CARLA Administration Lactulose 30 gm 12/08/19 11:55 12/09/19 08:45 Lactulose PO 30 gm
[2019-12-16 17:06] LABS: Glucose Point of Care 97 (65-105)
[2019-12-16] MEDS: INSULIN GLARGINE (*BKC) 100 UNITS/ML 40 UNITS SUB-Q (21:08)
[2019-12-16 22:00] VITALS: BP 122/61; PULSE 77; RESP 18; TEMP 36.7; O2SAT 97
[2019-12-17 00:46] LABS: Glucose Point of Care 134 (65-105)
[2019-12-17 06:00] VITALS: BP 109/60; PULSE 64; RESP 18; TEMP 36.2; O2SAT 97
[2019-12-17 06:55] LABS: Glucose Point of Care 134 (65-105)
[2019-12-17] MEDS: INSULIN GLARGINE (*BKC) 100 UNITS/ML 30 UNITS SUB-Q (07:22)
[2019-12-17] MEDS: ENOXAPARIN 40 MG/0.4 ML SYRINGE SUB-Q ×2 (07:22→17:10)
[2019-12-17] MEDS: DOCUSATE SODIUM 100 MG CAPSULE PO (07:37)
[2019-12-17] MEDS: FLUTICASONE PROPIONATE 0.05% NA SPR 16 GM BTL (*BKC) 2 SPRAY NASAL (07:37)
[2019-12-17] MEDS: ATORVASTATIN 40 MG TABLET PO (07:38)
[2019-12-17] MEDS: lisinopriL 10 MG TABLET 30 MG PO (07:38)
[2019-12-17] MEDS: metFORMIN HCL 500 MG TABLET 1000 MG PO ×2 (07:38→17:10)
[2019-12-17] MEDS: CALCIUM CARBONATE (OSCAL) 500 MG TABLET PO ×2 (07:38→17:10)
[2019-12-17] MEDS: TAMSULOSIN HCL 0.4 MG CAPSULE PO (07:38)
[2019-12-17 11:54] LABS: Glucose Point of Care 107 (65-105)
--- NOTE | 2019-12-17 13:04 | WPDNEURORHBP ---
Subjective Date/time seen: 12/17/19 13:04 Interval history: This 64-year-old diabetic gentleman has been here after having had surgery for the right distal femur fracture /periprosthetic he has done remarkably well in the rehab we discussed in over team conference and all the information was given to his the incision is clean he denies any headache nausea vomiting chest pain shortness of breath fever chills or sore throat he has an appointment with the the treating surgeon tomorrow and then he can decide about his continuation or discontinuation of the Lovenox at the time Review of Systems Review of Systems: All systems reviewed & are unremarkable except as noted in HPI and below Functional Status Ambulation Ability Ability to Ambulate 10 Feet: Standby Assistance Ambulation Assistive Devices: Walker, Standard Transfers Ability Ability to Transfer In/Out of Chair: Independent Exam Const: General: comfortable and no acute distress HENMT: General nose exam: Normal nares present Mouth: Yes moist mucous membranes Eyes: General: appearance normal, both eyes and all related structures Neck: Neck: supple and no JVD Resp: Effort & Inspection: normal respiratory effort Auscultation: clear to auscultation bilaterally Cardio: Rate: regular rate Rhythm: regular rhythm GI: GI Palp: Yes Soft to palpation Auscultation: normal bowel sounds Skin: General skin exam: normal color and no rashes or lesions noted Neuro: Other: patient remains awake alert will oriented in time place and person is speech and language functions are normal cranial examination normal the strength has improved and his ability to perform the activities of daily living are much better and he has tried to walk short distances 30 feet Extrem: Other: the patient is right lower extremity remains in the immobilizer arm the incision is clean and he has done well in the rehab Psych: Mental Status: mental status grossly normal Objective Data Vital Signs Vital Signs: Vital Signs - 24 hr 12/16/19 14:00 12/16/19 22:00 12/17/19 06:00 Temperature 36.8 C 36.7 C 36.2 C L Pulse Rate 80 77 64 Respiratory Rate 20 18 18 Blood Pressure 125/62 122/61 109/60 Pulse Oximetry 98 97 97 Intake/Output Intake/Output: Intake & Output 12/14/19 12/15/19 12/16/19 12/17/19 23:59 23:59 23:59 23:59 Intake Total 860 780 720 240 Balance 860 780 720 240 Meds/Results Medications: Active Medications Generic Name Dose Route Start Last Admin Trade Name Freq PRN Reason Stop Dose Admin Hydrocodone Bitart/Acetaminophen 1 tab 12/16/19 03:00 12/17/19 11:49 [place] 10-325 Mg PO 1 tab Q4H CARLA Administration Atorvastatin Calcium 40 mg 12/05/19 09:00 12/17/19 07:38 Lipitor PO 40 mg DAILY CARLA Administration Calcium Carbonate 500 mg 12/04/19 17:00 12/17/19 07:38 [place] 500 Mg PO 500 mg BID CARLA Administration Dextrose 12.5 gm 12/04/19 19:08 Dextrose 50% Syringe IV PUSH PRN PRN Hypoglycemia Protocol Docusate Sodium 100 mg 12/15/19 21:00 12/17/19 07:37 Colace Capsule PO 100 mg Q12HR CARLA Administration Enoxaparin Sodium 40 mg 12/06/19 18:00 12/17/19 07:22 Lovenox SUB-Q 40 mg Q12H CARLA Administration Ergocalciferol 50,000 unit 12/16/19 09:00 12/16/19 08:06 Drisdol PO 50,000 unit Mo@0900 CARLA Administration Fluticasone Propionate 2 spray 12/05/19 09:00 12/17/19 07:37 Flonase 0.05% Nasal [place] NASAL 2 spray DAILY CARLA Administration Glucagon 1 mg 12/04/19 19:08 Glucagon For Inj IM PRN PRN Hypoglycemia Protocol Glucose 15 gm 12/04/19 19:08 Glutose 15 PO PRN PRN Hypoglycemia Protocol Dextrose 1,000 mls @ 100 mls/hr 12/04/19 19:08 Dextrose 5% 1,000 Ml IVPB PRN PRN Hypoglycemia Protocol Insulin Aspart 4 - 8 units 12/07/19 08:00 12/17/19 11:49 Novolog SUB-Q Not Given [facility] Protocol Insulin Glargine
[2019-12-17 14:00] VITALS: BP 132/67; PULSE 100; RESP 20; TEMP 36.6; O2SAT 99
[2019-12-17] MEDS: polyethylene glycoL 3350 17 GM POWD.PACK PO (14:14)
[2019-12-17 16:57] LABS: Glucose Point of Care 92 (65-105)
[2019-12-17] MEDS: DOCUSATE SODIUM 100 MG CAPSULE 200 MG PO (20:51)
[2019-12-17] MEDS: INSULIN GLARGINE (*BKC) 100 UNITS/ML 40 UNITS SUB-Q (20:51)
[2019-12-17 21:03] LABS: Glucose Point of Care 136 (65-105)
[2019-12-17 21:53] VITALS: BP 128/68; PULSE 78; RESP 18; TEMP 36.5; O2SAT 97
[2019-12-18 06:00] VITALS: BP 120/69; PULSE 69; RESP 18; TEMP 37.1; O2SAT 100
[2019-12-18] MEDS: ENOXAPARIN 40 MG/0.4 ML SYRINGE SUB-Q (06:48)
[2019-12-18 06:53] LABS: Glucose Point of Care 119 (65-105)
[2019-12-18] MEDS: ATORVASTATIN 40 MG TABLET PO (07:13)
[2019-12-18] MEDS: TAMSULOSIN HCL 0.4 MG CAPSULE PO (07:14)
[2019-12-18] MEDS: lisinopriL 10 MG TABLET 30 MG PO (07:14)
[2019-12-18] MEDS: CALCIUM CARBONATE (OSCAL) 500 MG TABLET PO (07:15)
[2019-12-18] MEDS: DOCUSATE SODIUM 100 MG CAPSULE 200 MG PO (07:15)
[2019-12-18] MEDS: metFORMIN HCL 500 MG TABLET 1000 MG PO (07:15)
[2019-12-18] MEDS: INSULIN GLARGINE (*BKC) 100 UNITS/ML 30 UNITS SUB-Q (07:16)
[2019-12-18] MEDS: FLUTICASONE PROPIONATE 0.05% NA SPR 16 GM BTL (*BKC) 2 SPRAY NASAL (07:17)
[2019-12-18 07:39] VITALS: PULSE 68; RESP 16
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
== END 2019-12-18 08:45 | disposition home health service (06) | DRG 560 ==
PROVIDERS: Physician Assistant; Admitting Provider Psychiatry & Neurology Neurology; PCP Internal Medicine; Visit Provider Psychiatry & Neurology Neurology
DX: S72.401D Unspecified fracture of lower end of right femur, subsequent encounter for closed fracture with routine healing (principal); Z68.42 Body mass index [BMI] 45.0-49.9, adult; E87.1 Hypo-osmolality and hyponatremia; M97.11XD Periprosthetic fracture around internal prosthetic right knee joint, subsequent encounter; E11.42 Type 2 diabetes mellitus with diabetic polyneuropathy; E78.5 Hyperlipidemia, unspecified; E11.65 Type 2 diabetes mellitus with hyperglycemia; E66.01 Morbid (severe) obesity due to excess calories; I10 Essential (primary) hypertension; K59.03 Drug induced constipation; N40.0 Benign prostatic hyperplasia without lower urinary tract symptoms; R60.0 Localized edema; Z98.890 Other specified postprocedural states; Z79.84 Long term (current) use of oral hypoglycemic drugs; Z96.653 Presence of artificial knee joint, bilateral
CPT/HCPCS: 36415; 80048; 80053; 80061; 82533; 82570; 83036; 83935; 84295; 84300; 84439; 84443; 84480; 85025; 85027; 93970; 97110; 97116; 97162; 97166; 97530; 97535; 97542; A9270; J1650; J1815